=== PATIENT | male | born 1930 | race Two or more races ===

== ENCOUNTER 2018-01-28 00:39 | Inpatient (IN) | payer MEDICARE, MEDICAID ==
[2018-01-28] VITALS (62 sets, daily range): BP systolic 54–139; BP diastolic 30–75
[~2018-01-28] VITALS: Ht 177.8 cm; Wt 90.9 kg
[2018-01-28 02:17] LABS: BILIRUBIN, URINE NEGATIVE (NEGATIVE); GLUCOSE, URINE (UA) NEGATIVE (NEGATIVE); KETONES,URINE NEGATIVE (NEGATIVE); LEUKOCYTE ESTERASE ,URINE 3+ (NEGATIVE); NITRITE,URINE NEGATIVE (NEGATIVE); PH,URINE 7 (4.5-8.0); PROTEIN,URINE 3+ (NEGATIVE); UROBILINOGEN,URINE NORMAL MG/DL (0.0-1.0)
[2018-01-28 02:25] LABS: HEMATOCRIT 19.4 % (42.0-52.0); HEMOGLOBIN 7.1 G/DL (14.2-18.0); MEAN CORPUSCULAR VOLUME 93 FL (80-99); PLATELET COUNT 65 K/UL (150-450); RED BLOOD COUNT 2.08 M/UL (4.70-6.10); WHITE BLOOD COUNT 3.1 K/UL (4.8-10.8)
[2018-01-28 02:36] LABS: ALANINE AMINOTRANSFERASE 19 U/L (12-78); ALBUMIN 1.3 G/DL (3.4-5.0); ALBUMIN/GLOBULIN RATIO 0.3 (1.0-2.7); ALKALINE PHOSPHATASE 114 U/L (46-116); ANION GAP 5 mmol/L (5-15); ASPARTATE AMINO TRANSFERASE 23 U/L (15-37); BILIRUBIN,TOTAL 0.4 MG/DL (0.2-1.0); BLOOD UREA NITROGEN 53 mg/dL (7-18); CALCIUM 9.1 MG/DL (8.5-10.1); CARBON DIOXIDE 30 MMOL/L (21-32); CHLORIDE 84 MMOL/L (98-107); CKMB 11.5 NG/ML (0.0-3.6); CREATINE KINASE 41 U/L (26-308); CREATININE 1.6 MG/DL (0.55-1.30); POTASSIUM 5.3 MMOL/L (3.5-5.1); SODIUM 120 MMOL/L (136-145)
[2018-01-28 02:37] LABS: APPEARANCE,URINE CLOUDY; COLOR,URINE YELLOW
[2018-01-28] MEDS ORDERED: Piperacillin/Tazobactam 3.375 GM in NS 110 ML IVPB ONE (03:00)
[2018-01-28] MEDS ORDERED: Azithromycin 500 MG in D5W 275 ML IVPB ONE (04:15)
[2018-01-28] MEDS ORDERED: ACETAMINOPHEN325 M1 ORAL (04:17)
[2018-01-28] MEDS ORDERED: SYNTHROID100 MCG GT (04:17)
[2018-01-28] MEDS ORDERED: MULTI-DELYN237 ML GT (04:17)
[2018-01-28] MEDS ORDERED: ATORVASTATIN CA10 MG GT (04:17)
[2018-01-28] MEDS ORDERED: ASPIRIN81 MG GT (04:17)
[2018-01-28] MEDS ORDERED: AMIODARONE HCL200 MG GT (04:17)
[2018-01-28] MEDS ORDERED: FUROSEMIDE20 M1 GT (04:17)
[2018-01-28] MEDS ORDERED: DEPAKENE250 MG/5 M GT (04:17)
[2018-01-28] MEDS ORDERED: FERROUS SU300 MG/52 GT (04:17)
[2018-01-28] MEDS ORDERED: ROPINIROLE HCL0.5 MG GT (04:17)
[2018-01-28] MEDS ORDERED: ARICEPT10 MG GT (04:17)
[2018-01-28] MEDS ORDERED: MILK OF MA400 MG/51 GT (04:17)
[2018-01-28] MEDS ORDERED: DULCOLAX10 MG RC (04:17)
[2018-01-28] MEDS ORDERED: UTI-STAT L3875 MG/31 GT (04:17)
[2018-01-28] MEDS ORDERED: ZOFRAN4 M3 GT (04:17)
[2018-01-28] MEDS ORDERED: KEPPRA LIQ100 MG/1 M GT (04:17)
[2018-01-28] MEDS ORDERED: ACETAMINOPHEN325 M1 GT (04:17)
[2018-01-28] MEDS ORDERED: ZINC SULFATE220 M1 GT (04:17)
[2018-01-28] MEDS ORDERED: VITAMIN C500 M1 GT (04:17)
[2018-01-28] MEDS ORDERED: TRAMADOL HCL50 MG GT (04:17)
[2018-01-28] MEDS ORDERED: COLACE100 MG GT (04:17)
[2018-01-28] MEDS ORDERED: MELATONIN 3 MG1 EAC1 GT (04:17)
[2018-01-28] MEDS ORDERED: LACTULOSE20 GM/301 GT (04:17)
[2018-01-28] MEDS ORDERED: KLONOPIN1 MG GT (04:17)
--- NOTE | 2018-01-28 05:11 | Emergency Room Report ---
History of Present Illness General Chief Complaint: Altered Level of Consciousness Source: Medical Record, EMS Present Illness HPI 87-year-old male presents ED for evaluation. Patient brought in from shelter for altered mental status 1 day. Patient has dementia at baseline but nursing staff states patient appears more altered than usual. Hypotensive as per triage. Patient has trach, G-tube. Patient is unable to find any additional history at this time. No other aggravating relieving factors. Denies any other associated symptoms Allergies: Uncoded Allergies: VITAMIN B12 (Allergy, Unknown, 01/28/18) Patient History Past Medical History: seizures Past Surgical History: pacemaker, other - trach/gtube Pertinent Family History: none Social History: Denies: smoking, alcohol use, drug use Immunizations: UTD Reviewed Nursing Documentation: PMH: Agreed; PSxH: Agreed Nursing Documentation-PMH Hx Hypertension: Yes - ANEMIA,HYPOTHYROIDISM Hx Pacemaker: Yes Hx Diabetes: Yes Hx Gastrointestinal Problems: Yes - GASTROSTOMY History Of Psychiatric Problem: Yes - ANXIETY,SCHIZO Hx Cerebrovascular Accident: Yes Hx Seizures: Yes Review of Systems All Other Systems: limited Physical Exam Vital Signs Date Time Temp Pulse Resp B/P (MAP) Pulse Ox O2 Delivery O2 Flow Rate FiO2 01/28/18 00:41 60 17 77/45 100 Mechanical Ventilator 100 01/28/18 01:00 90.0 90.0 Sp02 EP Interpretation: reviewed, normal General Appearance: lethargic Head: normocephalic Eyes: bilateral eye normal inspection, bilateral eye PERRL ENT: normal ENT inspection Neck: tracheotomy Respiratory: decreased breath sounds, crackles Cardiovascular #1: no edema, other - paced Gastrointestinal: other - Gtube site C/D/I Rectal: deferred Genitourinary: no CVA tenderness Musculoskeletal: normal inspection Neurologic: other - dementia Psychiatric: other - dementia Skin: normal inspection Lymphatic: normal inspection Procedures Critical Care Time Critical Care Time i. I feel this is a highly complex case requiring extensive working including EKG/Rhythm strip, Xray/CT/US, Blood/urine lab work, repeat exams while in ED, and administration of strong opiates/narcotics for pain control, admission to hospital or close patient follow up. Total time: 30 min bedside evaluation and treatment excludes procedures (EKG). Reason for critical care: Altered, hypotensive Possible complications: hypotension, hypertension, MA, shock, arrhythmias, metabolic acidosis, end organ damage, respiratory failure. Interventions: Central line, labs, IV fluids, EKG, chest x-ray, pressors, blood transfusion, antibiotics Course: Patient presenting altered 1 day. Hypotensive. Poor IV access. Central line placed. BUN/Cr creatinine elevated, potassium elevated, lactate greater than 4, UA positive for UTI, chest x-ray shows significant pneumonia bilaterally, possible cavitation. Given broad-spectrum antibiotics. Blood pressure slowly improving after IV hydration, pressors.. PRBCs ordered Consultations: nursing staff, EMS, family Performed by: Dr Bullock Tolerated well condition = critical j. because of unstable vital signs this patient had a condition that could potentially threaten life or limb. I feel this is a critical patient who required my full attention while patient was considered critical. Total Critical Care Time excluding procedures was greater than 35 minutes Central Line Central Line : Consent: Emergent Central Line Lumen: triple Central Line Postion: femoral (R) Complications: none Central Line Post Position: sutured, good blood return Attempts: One Patient Tolerated: Well Complications: None Medical Decision Making Diagnostic Impression: Primary Impression: Altered level of consciousness Additional Impressions: Septic shock Renal insufficiency UTI (urinary tract infection) Qualified Codes: N39.0 - Urinary tract infection, site not specified Pneumonia Qualified Codes: J18.9 - Pneumonia, unspecified organism Hyponatremia Anemia Qualified Codes: D64.9 - Anemia, unspecified ER Course Hospital Course 87-year-old male presents ED for altered level of consciousness 1 day, hypotensive Differential diagnoses include: Pneumonia, UTI, sepsis, dehydration, MA/ unstable angina Clinical course Patient placed on stretcher. On playground monitor with hypotension. After initial history and physical, I ordered labs, IV fluids, EKG, chest x-ray, blood cultures, UA. Patient has poor IV access. Left femoral line placed Labs - Na 120, K 5.3, BUN/Cr elevated, noted leukocytosis, troponins negative, UA grossly positive for UTI, lactate > 4, hb/hct low EKG - paced rhythm CXR - bilateral infiltrates, pacemaker, possible cavitation Patient hypotensive, slowly improving with IV fluids, pressors. Given broad spectrum antibiotics. PRBCs ordered Discussed poor prognosis with son over the phone. Gave consent for blood transfusion Case discussed with Dr Mónica Coleman and they agreed to admit patient to their service for further care and support I feel this is a highly complex case requiring extensive working including EKG/ Rhythm strip, Xray/CT/US, Blood/urine lab work, repeat exams while in ED, and administration of strong opiates/narcotics for pain control, admission to hospital or close patient follow up. Diagnosis - ALOC, septic shock, renal insufficiency, UTI, pneumonia, hyponatremia, anemia Patient admitted to ICU in critical condition Labs Test 01/28/18 00:50 01/28/18 01:30 01/28/18 04:00 Urine Color Yellow Urine Appearance Cloudy Urine pH 7 (4.5-8.0) Urine Specific [place] 1.010 (1.005-1.035) Urine Protein 3+ (NEGATIVE) Urine Glucose (UA) Negative (NEGATIVE) Urine Ketones Negative (NEGATIVE) Urine Occult Blood 5+ (NEGATIVE) Urine Nitrite Negative (NEGATIVE) Urine Bilirubin Negative (NEGATIVE) Urine Urobilinogen Normal MG/DL (0.0-1.0) Urine Leukocyte Esterase 3+ (NEGATIVE) Urine RBC Tntc /HPF (0 - 0) Urine WBC Tntc /HPF (0 - 0) Urine Squamous Epithelial Cells None /LPF (NONE/OCC) Urine Calcium Oxalate Crystals Few /LPF (NONE) Urine Bacteria Many /HPF (NONE) Urine Yeast Many /HPF (NONE) White Blood Count 3.1 K/UL (4.8-10.8) Red Blood Count 2.08 M/UL (4.70-6.10) Hemoglobin 7.1 G/DL (14.2-18.0) Hematocrit 19.4 % (42.0-52.0) Mean Corpuscular Volume 93 FL (80-99) Mean Corpuscular Hemoglobin 33.9 PG (27.0-31.0) Mean Corpuscular Hemoglobin Concent 36.3 G/DL (32.0-36.0) Red Cell Distribution Width 17.0 % (11.6-14.8) Platelet Count 65 K/UL (150-450) Mean Platelet Volume 8.8 FL (6.5-10.1) Neutrophils (%) (Auto) % (45.0-75.0) Lymphocytes (%) (Auto) % (20.0-45.0) Monocytes (%) (Auto) % (1.0-10.0) Eosinophils (%) (Auto) % (0.0-3.0) Basophils (%) (Auto) % (0.0-2.0) Prothrombin Time 10.5 SEC (9.30-11.50) Prothromb Time International Ratio 1.0 (0.9-1.1) Activated Partial Thromboplast Time 32 SEC (23-33) Sodium Level 120 MMOL/L (136-145) Potassium Level 5.3 MMOL/L (3.5-5.1) Chloride Level 84 MMOL/L (98-107) Carbon Dioxide Level 30 MMOL/L (21-32) Anion Gap 5 mmol/L (5-15) Blood Urea Nitrogen 53 mg/dL (7-18) Creatinine 1.6 MG/DL (0.55-1.30) Estimat Glomerular Filtration Rate mL/min (>60) Glucose Level 97 MG/DL (74-106) Lactic Acid Level 4.40 mmol/L (0.66-2.22) 3.00 mmol/L (0.66-2.22) Calcium Level 9.1 MG/DL (8.5-10.1) Total Bilirubin 0.4 MG/DL (0.2-1.0) Aspartate Amino Transf (AST/SGOT) 23 U/L (15-37) Alanine Aminotransferase (ALT/SGPT) 19 U/L (12-78) Alkaline Phosphatase 114 U/L (46-116) Total Creatine Kinase 41 U/L (26-308) Creatine Kinase MB 11.5 NG/ML (0.0-3.6) Creatine Kinase MB Relative Index 28.0 Troponin I 0.000 ng/mL (0.000-0.056) Pro-B-Type Natriuretic Peptide 7020 pg/mL (0-125) Total Protein 6.2 G/DL (6.4-8.2) Albumin 1.3 G/DL (3.4-5.0) Globulin 4.9 g/dL Albumin/Globulin Ratio 0.3 (1.0-2.7) EKG Diagnostic Results Rate: normal Rhythm: other - paced ST Segments: no acute changes ASA given to the pt in ED: No Rhythm Strip Diag. Results EP Interpretation: yes Rhythm: no PVC's, no ectopy Chest X-Ray Diagnostic Results Chest X-Ray Diagnostic Results : Chest X-Ray Ordered: Yes # of Views/Limited/Complete: 1 View Indication: Shortness of Breath EP Interpretation: Yes Interpretation: no pneumothorax, other - pacemaker. bilateral pneumonia Impression: Other - pneumonia Electronically Signed by: Electronically signed by Trev Bullock MD Last Vital Signs Date Time Temp Pulse Resp B/P (MAP) Pulse Ox O2 Delivery O2 Flow Rate FiO2 01/28/18 04:15 137/56 01/28/18 04:15 90.2 60 16 100 Mechanical Ventilator 80 90.2 Status: improved Disposition: ADMITTED INPATIENT Condition: Critical Referrals: Mónica Coleman MD (PCP) Trev Bullock MD January 28, 2018 05:11
[2018-01-28] MEDS ORDERED: Hydrocortisone 100mg Inj IV ONE (07:45)
[2018-01-28] MEDS ORDERED: levETIRAcetam 500mg/5ml Liquid GT SCH (10:00)
[2018-01-28] MEDS ORDERED: Albuterol/Ipratropium 3ml neb HHN PRN (10:00)
[2018-01-28] MEDS ORDERED: LORazepam Inj 2mg/ml 1ml IV PRN (10:00)
[2018-01-28] MEDS ORDERED: Miralax 17gm pkt ORAL PRN (10:00)
[2018-01-28] MEDS ORDERED: Morphine Sulfate 4mg/ml Inj IVP PRN (10:00)
[2018-01-28] MEDS ORDERED: Pantoprazole Inj IVP SCH (10:30)
--- NOTE | 2018-01-28 11:04 | Consultation ---
History of Present Illness General Date patient seen: January 28, 2018 Chief Complaint: Altered Level of Consciousness Present Illness HPI 87-year-old male with hx of chronic respiratory failure, Trach/vent/peg, long term resident [facility] for evaluation of altered mental status 1 day. Patient has dementia at baseline but nursing staff states patient appears more altered than usual. He was hypotensive on presentation and was started on Levophed drip in ER. Patient is unable to give any history. He was alos hypothermic. His CXR showed bilateral extensive infiltrate. He is admitted to ICU for further treatment. Allergies: Uncoded Allergies: VITAMIN B12 (Allergy, Unknown, 01/28/18) Medication History Scheduled Amiodarone Hcl* (Cordarone*), 200 MG GT DAILY, (Reported) Ascorbic Acid* (Vitamin C*), 500 MG GT DAILY, (Reported) Aspirin* (Aspirin*), 81 MG GT DAILY, (Reported) Atorvastatin Calcium* (Lipitor*), 10 MG GT BEDTIME, (Reported) Clonazepam* (Klonopin*), 2 MG GT EVERY 12 HOURS, (Reported) Cran/Vitc/Mannose/Inulin/Brom (Uti-Stat Liquid), 30 ML GT BID, (Reported) Docusate Sodium* (Colace*), 100 MG GT DAILY, (Reported) Donepezil Hcl* (Aricept*), 10 MG GT BEDTIME, (Reported) Ferrous Sulfate (Ferrous Sulfate), 7.5 ML GT DAILY, (Reported) Furosemide* (Lasix*), 20 MG GT BID, (Reported) Lactulose (Lactulose*), 30 ML GT DAILY, (Reported) Levetiracetam (Keppra), 500 MG GT BID, (Reported) Levothyroxine Sodium* (Synthroid*), 100 MCG GT DAILY, (Reported) Magnesium Hydroxide* (Milk Of Magnesia*), 30 ML GT BEDTIME, (Reported) Melatonin/Pyridoxine HCl (B6) (Melatonin 3 mg Tablet), 1 EACH GT BEDTIME, ( Reported) Multivitamin Liquid* (Multi-Delyn*), 5 ML GT DAILY, (Reported) Ropinirole Hcl* (Ropinirole Hcl*), 0.5 MG GT TID, (Reported) Valproate Sodium (Depakene), 10 ML GT BID, (Reported) Zinc Sulfate (Zinc Sulfate*), 220 MG GT DAILY, (Reported) Scheduled PRN Acetaminophen* (Acetaminophen 325MG Tablet*), 650 MG GT Q4H PRN for FEVER, ( Reported) Acetaminophen* (Acetaminophen 325MG Tablet*), 650 MG ORAL Q4H PRN for MILD PAIN, (Reported) Bisacodyl (Dulcolax), 10 MG RC DAILY PRN for Constipation, (Reported) Ondansetron* (Zofran*), 4 MG GT Q6H PRN for Nausea & Vomiting, (Reported) Tramadol Hcl* (Ultram*), 50 MG GT Q6H PRN for For Pain, (Reported) Patient History Healthcare decision maker Resuscitation status Advanced Directive on File Past Medical/Surgical History Past Medical/Surgical History: (1) Hypothyroidism (2) Arrhythmia (3) Dementia (4) Chronic respiratory failure Review of Systems All Other Systems: negative except mentioned in HPI Physical Exam General Appearance: cachetic Lines, tubes and drains: peripheral, central line - left femoral, trach, gtube Neck: non-tender Respiratory/Chest: rhonchi - left, rhonchi - right Cardiovascular/Chest: normal peripheral pulses, normal rate Abdomen: normal bowel sounds Genitourinary/Rectal: normal genital exam, normal rectal exam Extremities: no edema, no cyanosis Skin Exam: normal pigmentation Last 24 Hour Vital Signs Date Time Temp Pulse Resp B/P (MAP) Pulse Ox O2 Delivery O2 Flow Rate FiO2 01/28/18 10:27 60 18 100 01/28/18 09:40 104/45 01/28/18 08:39 86/43 01/28/18 07:45 91.9 60 23 107/44 85 Mechanical Ventilator 100 91.9 01/28/18 07:40 91.9 60 23 107/44 85 Mechanical Ventilator 100 91.9 01/28/18 07:17 100 01/28/18 07:05 61 20 100 01/28/18 07:00 103/43 01/28/18 06:54 90.7 60 14 102/50 87 Mechanical Ventilator 100 90.7 01/28/18 06:00 95/75 01/28/18 05:54 90.7 60 14 95/75 84 Mechanical Ventilator 100 90.7 01/28/18 05:45 90.7 60 14 90.7 01/28/18 05:38 60 20 100 01/28/18 05:30 90.5 60 14 102/47 84 Mechanical Ventilator 100 90.5 01/28/18 05:30 90.5 60 14 90.5 01/28/18 05:00 100/45 01/28/18 05:00 90.2 60 14 100/45 88 Mechanical Ventilator 100 90.2 01/28/18 04:15 137/56 01/28/18 04:15 90.2 60 16 137/56 92 Mechanical Ventilator 80 90.2 01/28/18 04:00 90.2 60 16 139/66 100 Mechanical Ventilator 80 90.2 01/28/18 04:00 139/66 01/28/18 03:40 90.1 60 16 130/63 100 Mechanical Ventilator 80 90.1 01/28/18 03:40 130/63 01/28/18 03:35 78/55 01/28/18 03:30 68/45 01/28/18 03:25 90.1 60 16 54/34 100 Mechanical Ventilator 80 90.1 01/28/18 03:25 54/34 01/28/18 03:20 90.1 60 16 58/40 100 Mechanical Ventilator 80 90.1 01/28/18 03:20 58/40 01/28/18 03:15 90.1 60 16 63/37 100 Mechanical Ventilator 80 90.1 01/28/18 03:15 63/37 01/28/18 03:10 90.1 60 16 59/30 100 Mechanical Ventilator 80 90.1 01/28/18 03:10 59/30 01/28/18 03:05 55/36 01/28/18 03:05 90.1 60 16 55/36 100 Mechanical Ventilator 80 90.1 01/28/18 03:00 62/39 01/28/18 03:00 90.1 60 14 62/39 100 Mechanical Ventilator 80 90.1 01/28/18 02:58 62 17 100 01/28/18 02:30 90.1 60 14 69/41 100 Mechanical Ventilator 80 90.1 01/28/18 02:13 60 21 Mechanical Ventilator 100 01/28/18 02:00 90.1 60 16 62/36 100 Mechanical Ventilator 80 90.1 01/28/18 01:45 90.0 60 14 64/44 100 Mechanical Ventilator 80 90.0 01/28/18 01:30 90.0 61 16 58/34 100 Mechanical Ventilator 80 90.0 01/28/18 01:15 90.0 62 16 68/48 100 Mechanical Ventilator 80 90.0 01/28/18 01:04 100 01/28/18 01:00 90.0 60 16 69/45 100 Mechanical Ventilator 80 90.0 01/28/18 00:55 60 21 100 01/28/18 00:41 60 17 77/45 100 Mechanical Ventilator 100 Intake and Output 01/27/18 01/28/18 19:00 07:00 Intake Total 3360 ml Output Total 240 ml Balance 3120 ml Intake IV Total 3360 ml Output Urine Total 240 ml Laboratory Tests Test 01/28/18 00:50 01/28/18 01:30 01/28/18 04:00 01/28/18 06:29 Urine Color Yellow Urine Appearance Cloudy Urine pH 7 (4.5-8.0) Urine Specific [place] 1.010 (1.005-1.035) Urine Protein 3+ (NEGATIVE) H Urine Glucose (UA) Negative (NEGATIVE) Urine Ketones Negative (NEGATIVE) Urine Occult Blood 5+ (NEGATIVE) H Urine Nitrite Negative (NEGATIVE) Urine Bilirubin Negative (NEGATIVE) Urine Urobilinogen Normal MG/DL (0.0-1.0) Urine Leukocyte Esterase 3+ (NEGATIVE) H Urine RBC Tntc /HPF (0 - 0) H Urine WBC Tntc /HPF (0 - 0) H Urine Squamous Epithelial Cells None /LPF (NONE/OCC) Urine Calcium Oxalate Crystals Few /LPF (NONE) Urine Bacteria Many /HPF (NONE) H Urine Yeast Many /HPF (NONE) H White Blood Count 3.1 K/UL (4.8-10.8) L Red Blood Count 2.08 M/UL (4.70-6.10) L Hemoglobin 7.1 G/DL (14.2-18.0) L Hematocrit 19.4 % (42.0-52.0) L Mean Corpuscular Volume 93 FL (80-99) Mean Corpuscular Hemoglobin 33.9 PG (27.0-31.0) H Mean Corpuscular Hemoglobin Concent 36.3 G/DL (32.0-36.0) H Red Cell Distribution Width 17.0 % (11.6-14.8) H Platelet Count 65 K/UL (150-450) L Mean Platelet Volume 8.8 FL (6.5-10.1) Neutrophils (%) (Auto) % (45.0-75.0) Lymphocytes (%) (Auto) % (20.0-45.0) Monocytes (%) (Auto) % (1.0-10.0) Eosinophils (%) (Auto) % (0.0-3.0) Basophils (%) (Auto) % (0.0-2.0) Prothrombin Time 10.5 SEC (9.30-11.50) Prothromb Time International Ratio 1.0 (0.9-1.1) Activated Partial Thromboplast Time 32 SEC (23-33) Sodium Level 120 MMOL/L (136-145) L Potassium Level 5.3 MMOL/L (3.5-5.1) H Chloride Level 84 MMOL/L (98-107) L Carbon Dioxide Level 30 MMOL/L (21-32) Anion Gap 5 mmol/L (5-15) Blood Urea Nitrogen 53 mg/dL (7-18) H Creatinine 1.6 MG/DL (0.55-1.30) H Estimat Glomerular Filtration Rate mL/min (>60) Glucose Level 97 MG/DL (74-106) Lactic Acid Level 4.40 mmol/L (0.66-2.22) H 3.00 mmol/L (0.66-2.22) H Uric Acid 5.5 MG/DL (2.6-7.2) Calcium Level 9.1 MG/DL (8.5-10.1) Total Bilirubin 0.4 MG/DL (0.2-1.0) Aspartate Amino Transf (AST/SGOT) 23 U/L (15-37) Alanine Aminotransferase (ALT/SGPT) 19 U/L (12-78) Alkaline Phosphatase 114 U/L (46-116) Total Creatine Kinase 41 U/L (26-308) Creatine Kinase MB 11.5 NG/ML (0.0-3.6) H Creatine Kinase MB Relative Index 28.0 Troponin I 0.000 ng/mL (0.000-0.056) Pro-B-Type Natriuretic Peptide 7020 pg/mL (0-125) H Total Protein 6.2 G/DL (6.4-8.2) L Albumin 1.3 G/DL (3.4-5.0) L Globulin 4.9 g/dL Albumin/Globulin Ratio 0.3 (1.0-2.7) L Arterial Blood pH 7.260 (7.350-7.450) Arterial Blood Partial Pressure CO2 55.4 mmHg (35.0-45.0) *H Arterial Blood Partial Pressure O2 57.5 mmHg (75.0-100.0) L Arterial Blood HCO3 24.4 mmol/L (22.0-26.0) Arterial Blood Oxygen Saturation 83.9 % (92.0-98.0) L Arterial Blood Base Excess -2.9 Luis Test Positive Height (Feet): 5 Height (Inches): 10.00 Weight (Pounds): 165 Medications Current Medications Medications (Trade) Dose Ordered Sig/Jojo Route PRN Reason Start Time Stop Time Status Last Admin Dose Admin Acetaminophen (Tylenol) 650 mg Q4H PRN ORAL fever 01/28/18 10:00 02/27/18 09:59 Albuterol/ Ipratropium (Albuterol/ Ipratropium) 3 ml Q4H PRN HHN Shortness of Breath 01/28/18 10:00 02/02/18 09:59 Amikacin Sulfate / Sodium Chloride 110 ml @ 110 mls/hr Q24H IV 01/28/18 23:45 02/04/18 23:44 UNV Ertapenem 1 gm/ Sodium Chloride 55 ml @ 110 mls/hr Q24H IV 01/28/18 23:45 02/02/18 23:44 UNV Levetiracetam (Keppra) 500 mg ONCE GT 01/28/18 10:00 01/28/18 11:00 01/28/18 10:50 Levetiracetam (Keppra) 500 mg Q12HR GT 01/28/18 21:00 02/27/18 20:59 Levothyroxine Sodium (Synthroid) 100 mcg DAILY GT 01/29/18 09:00 02/28/18 08:59 Levothyroxine Sodium (Synthroid) 100 mcg DAILY GT 01/28/18 11:00 01/28/18 12:00 Lorazepam (Ativan 2mg/ml 1ml) 2 mg Q2H PRN IV For Anxiety 01/28/18 10:00 02/04/18 09:59 Morphine Sulfate (Morphine Sulfate) 4 mg Q4H PRN IVP Severe Pain (Pain Scale 7-10) 01/28/18 10:00 02/04/18 09:59 Norepinephrine Bitartrate 4 mg/ Dextrose 254 ml @ 0 mls/hr Q24H IV 01/28/18 10:30 02/27/18 10:29 Ondansetron HCl (Zofran) 4 mg Q6H PRN IVP Nausea & Vomiting 01/28/18 10:00 02/27/18 09:59 Pantoprazole (Protonix) 40 mg DAILY IVP 01/29/18 09:00 02/28/18 08:59 Pantoprazole (Protonix) 40 mg ONCE IVP 01/28/18 10:30 01/28/18 11:30 01/28/18 10:48 Polyethylene Glycol (Miralax) 17 gm DAILYPRN PRN ORAL Constipation 01/28/18 10:00 02/27/18 09:59 Sodium Chloride 1,000 ml @ 250 mls/hr Q4H IVLG 01/29/18 10:00 02/27/18 09:59 UNV Vancomycin HCl 1 gm/Dextrose 275 ml @ 183.3 mls/ hr Q24H IVPB 01/29/18 11:00 02/03/18 10:59 Vancomycin HCl/ Dextrose 250 ml @ 166.667 mls/hr ONCE IVPB 01/28/18 11:30 01/28/18 12:30 Assessment/Plan Problem List: (1) Acute on chronic respiratory failure ICD Codes: J96.20 - Acute and chronic respiratory failure, unspecified whether with hypoxia or hypercapnia SNOMED: 41249597 (2) Pneumonia ICD Codes: J18.9 - Pneumonia, unspecified organism SNOMED: 145194236, 274986570 Qualifiers: Qualified Codes: J18.9 - Pneumonia, unspecified organism (3) Septic shock ICD Codes: A41.9 - Sepsis, unspecified organism; R65.21 - Severe sepsis with septic shock SNOMED: 17816081 (4) Hyponatremia ICD Codes: E87.1 - Hypo-osmolality and hyponatremia; R65.21 - Severe sepsis with septic shock SNOMED: 06114424 (5) Altered level of consciousness ICD Codes: R40.4 - Transient alteration of awareness SNOMED: 8120549 (6) Hypotension ICD Codes: I95.9 - Hypotension, unspecified SNOMED: 23499080 (7) Anemia ICD Codes: D64.9 - Anemia, unspecified SNOMED: 682018110 Qualifiers: Qualified Codes: D64.9 - Anemia, unspecified Respiratory: monitor respiratory rate, adjust FIO2, CXR Cardiac: continue to monitor HR/BP Renal: F/U I&O, check electrolytes Infectious Disease: check cultures, continue antibiotics Gastrointestinal: hold feedings Endocrine: monitor blood sugar Neurologic: PRN Ativan Affect: PRN ativan Prophylaxis: Protonix, SCDs Disposition: keep in ICU Time Spent (Minutes): 40 Discussed with: nurses, consultants, machine adjuster leader case trim Shelly Marlow MD January 28, 2018 11:04
--- NOTE | 2018-01-28 11:24 | Diagnostic Imaging Report ---
Indication: Altered mental status Technique: XRAY Chest 1v Comparison: None Findings: Patient rotated to the left. Heart is Enlarged. There are atherosclerotic calcifications in the aorta. There are bilateral interstitial and more focal airspace consolidations. There is a small layering left pleural effusion. There is no definite pneumothorax. There is possible fluid tracking along the minor fissure on the right. Osteopenia and degenerative change of the spine. Tracheostomy tube in place. Dual lead pacemaker noted with lead tips projecting over the expected locations of the right atrium and ventricle. IMPRESSION: * Bilateral interstitial opacities and bilateral airspace consolidations possibly representing multifocal pneumonia. Clinical correlation and follow-up exam recommended. * Small left pleural effusion. Some fluid tracking along the right minor fissure. * Tracheostomy tube in place. This corresponds with the preliminary interpretation of the treating ER clinician, as documented in the electronic medical record. Study obtained via the emergency department however patient admitted to the hospital at time of dictation of the final report.
[2018-01-28] MEDS ORDERED: Vancomycin 1250mg/D5W 250ml IVPB SCH (11:30)
[2018-01-28 14:17] LABS: APPEARANCE,URINE TURBID; BILIRUBIN, URINE NEGATIVE (NEGATIVE); GLUCOSE, URINE (UA) NEGATIVE (NEGATIVE); KETONES,URINE NEGATIVE (NEGATIVE); LEUKOCYTE ESTERASE ,URINE 3+ (NEGATIVE); NITRITE,URINE NEGATIVE (NEGATIVE); PH,URINE 7 (4.5-8.0); PROTEIN,URINE 3+ (NEGATIVE); UROBILINOGEN,URINE NORMAL MG/DL (0.0-1.0)
[2018-01-28 14:31] LABS: COLOR,URINE YELLOW
[2018-01-28] MEDS ORDERED: Ertapenem 1 GM in NS 55 ML IV SCH (15:00)
--- NOTE | 2018-01-28 15:00 | Consultation ---
Consult Note Consult Note asked to eval for hyponatremia and renal failure 87-year-old male with hx of chronic respiratory failure, Trach/vent/peg, long-term resident [facility] for evaluation of altered mental status 1 day. Patient has dementia at baseline but nursing staff states patient appears more altered than usual. He was hypotensive on presentation and was started on Levophed drip in ER. Patient is unable to give any history. He was alos hypothermic. His CXR showed bilateral extensive infiltrate. He is admitted to ICU for further treatment. Past Medical History: seizures Past Surgical History: pacemaker, other - trach/gtube Hx Hypertension: Yes - ANEMIA,HYPOTHYROIDISM Hx Pacemaker: Yes Hx Diabetes: Yes Hx Gastrointestinal Problems: Yes - GASTROSTOMY History Of Psychiatric Problem: Yes - ANXIETY,SCHIZO Hx Cerebrovascular Accident: Yes Hx Seizures: Yes examined- data reviewed- discussed with RN . Assessment/Plan acute renal failure- Septic Shock- UTI- Pneumonia Encephalopathy Anemia Respiratory failure acute on Chronic HypoAlbuminemia Sz disorder HypoThyroidism Plan: antibiotics- pressors- hydrocortisone- transfusion monitor renal parameters avoid nephrotoxics MAMTA RACHEL January 28, 2018 15:00
--- NOTE | 2018-01-28 15:08 | Consultation ---
History of Present Illness General Date patient seen: January 28, 2018 Time patient seen: 14:41 Chief Complaint: Altered Level of Consciousness Present Illness HPI 87 y/o M with hx of chronic resp failure s/p trach/vent, dysphagia s/p PEG, s/p PPM, seizure disorder, hypothyroidism, CVA, anxiety, dementia, group home resident presents to ED with 1 day of AMS. In the ED found to be hypotensive and started on levophed dripn and hypothermic; admitted to the ICU. CXR showed bilateral extensive infiltrate. Maxed on Levop at 30 and SBP 80s. hypothermic Tmin 90.1, now improved to 93.2 pancytopenic. Allergies: Coded Allergies: CYANOCOBALAMIN (Verified Allergy, Unknown, 01/28/18) Medication History Scheduled Amiodarone Hcl* (Cordarone*), 200 MG GT DAILY, (Reported) Ascorbic Acid* (Vitamin C*), 500 MG GT DAILY, (Reported) Aspirin* (Aspirin*), 81 MG GT DAILY, (Reported) Atorvastatin Calcium* (Lipitor*), 10 MG GT BEDTIME, (Reported) Clonazepam* (Klonopin*), 2 MG GT EVERY 12 HOURS, (Reported) Cran/Vitc/Mannose/Inulin/Brom (Uti-Stat Liquid), 30 ML GT BID, (Reported) Docusate Sodium* (Colace*), 100 MG GT DAILY, (Reported) Donepezil Hcl* (Aricept*), 10 MG GT BEDTIME, (Reported) Ferrous Sulfate (Ferrous Sulfate), 7.5 ML GT DAILY, (Reported) Furosemide* (Lasix*), 20 MG GT BID, (Reported) Lactulose (Lactulose*), 30 ML GT DAILY, (Reported) Levetiracetam (Keppra), 500 MG GT BID, (Reported) Levothyroxine Sodium* (Synthroid*), 100 MCG GT DAILY, (Reported) Magnesium Hydroxide* (Milk Of Magnesia*), 30 ML GT BEDTIME, (Reported) Melatonin/Pyridoxine HCl (B6) (Melatonin 3 mg Tablet), 1 EACH GT BEDTIME, ( Reported) Multivitamin Liquid* (Multi-Delyn*), 5 ML GT DAILY, (Reported) Ropinirole Hcl* (Ropinirole Hcl*), 0.5 MG GT TID, (Reported) Valproate Sodium (Depakene), 10 ML GT BID, (Reported) Zinc Sulfate (Zinc Sulfate*), 220 MG GT DAILY, (Reported) Scheduled PRN Acetaminophen* (Acetaminophen 325MG Tablet*), 650 MG GT Q4H PRN for FEVER, ( Reported) Acetaminophen* (Acetaminophen 325MG Tablet*), 650 MG ORAL Q4H PRN for MILD PAIN, (Reported) Bisacodyl (Dulcolax), 10 MG RC DAILY PRN for Constipation, (Reported) Ondansetron* (Zofran*), 4 MG GT Q6H PRN for Nausea & Vomiting, (Reported) Tramadol Hcl* (Ultram*), 50 MG GT Q6H PRN for For Pain, (Reported) Patient History Healthcare decision maker Resuscitation status Advanced Directive on File Patient History Narrative PMhx: as above Shx: Denies: smoking, alcohol use, drug use Fhx: non contributory. Review of Systems ROS Narrative unable to obtain Physical Exam Physical Exam Narrative General Appearance: cachetic Lines, tubes and drains: peripheral, central line - left femoral, trach, gtube Neck: non-tender Respiratory/Chest: rhonchi - left, rhonchi - right Cardiovascular/Chest: normal peripheral pulses, normal rate Abdomen: normal bowel sounds Genitourinary/Rectal: normal genital exam, normal rectal exam Extremities: no edema, no cyanosis Skin Exam: normal pigmentation Last 24 Hour Vital Signs Date Time Temp Pulse Resp B/P (MAP) Pulse Ox O2 Delivery O2 Flow Rate FiO2 01/28/18 13:30 60 89/39 86 Mechanical Ventilator 100 01/28/18 13:25 89/39 01/28/18 13:00 60 92/46 84 Mechanical Ventilator 100 01/28/18 12:31 60 20 100 01/28/18 12:30 60 19 96/44 81 Mechanical Ventilator 100 01/28/18 12:00 60 01/28/18 12:00 93.2 60 21 113/53 88 Mechanical Ventilator 100 93.2 01/28/18 11:30 60 20 94/49 86 Mechanical Ventilator 100 01/28/18 11:00 60 21 88/46 82 Mechanical Ventilator 100 01/28/18 10:54 100 01/28/18 10:53 100 01/28/18 10:27 60 18 100 01/28/18 10:00 60 28 104/51 84 Mechanical Ventilator 100 01/28/18 09:40 104/45 01/28/18 09:29 60 17 100 01/28/18 09:00 60 37 104/45 81 Mechanical Ventilator 100 01/28/18 08:39 86/43 01/28/18 08:08 91.9 60 19 86/43 Mechanical Ventilator 100 91.9 01/28/18 08:00 60 01/28/18 07:45 91.9 60 23 107/44 85 Mechanical Ventilator 100 91.9 01/28/18 07:40 91.9 60 23 107/44 85 Mechanical Ventilator 100 91.9 01/28/18 07:17 100 01/28/18 07:05 61 20 100 01/28/18 07:00 103/43 01/28/18 06:54 90.7 60 14 102/50 87 Mechanical Ventilator 100 90.7 01/28/18 06:00 95/75 01/28/18 05:54 90.7 60 14 95/75 84 Mechanical Ventilator 100 90.7 01/28/18 05:45 90.7 60 14 90.7 01/28/18 05:38 60 20 100 01/28/18 05:30 90.5 60 14 102/47 84 Mechanical Ventilator 100 90.5 01/28/18 05:30 90.5 60 14 90.5 01/28/18 05:00 100/45 01/28/18 05:00 90.2 60 14 100/45 88 Mechanical Ventilator 100 90.2 01/28/18 04:15 137/56 01/28/18 04:15 90.2 60 16 137/56 92 Mechanical Ventilator 80 90.2 01/28/18 04:00 90.2 60 16 139/66 100 Mechanical Ventilator 80 90.2 01/28/18 04:00 139/66 01/28/18 03:40 90.1 60 16 130/63 100 Mechanical Ventilator 80 90.1 01/28/18 03:40 130/63 01/28/18 03:35 78/55 01/28/18 03:30 68/45 01/28/18 03:25 90.1 60 16 54/34 100 Mechanical Ventilator 80 90.1 01/28/18 03:25 54/34 01/28/18 03:20 90.1 60 16 58/40 100 Mechanical Ventilator 80 90.1 01/28/18 03:20 58/40 01/28/18 03:15 90.1 60 16 63/37 100 Mechanical Ventilator 80 90.1 01/28/18 03:15 63/37 01/28/18 03:10 90.1 60 16 59/30 100 Mechanical Ventilator 80 90.1 01/28/18 03:10 59/30 01/28/18 03:05 55/36 01/28/18 03:05 90.1 60 16 55/36 100 Mechanical Ventilator 80 90.1 01/28/18 03:00 62/39 01/28/18 03:00 90.1 60 14 62/39 100 Mechanical Ventilator 80 90.1 01/28/18 02:58 62 17 100 01/28/18 02:30 90.1 60 14 69/41 100 Mechanical Ventilator 80 90.1 01/28/18 02:13 60 21 Mechanical Ventilator 100 01/28/18 02:00 90.1 60 16 62/36 100 Mechanical Ventilator 80 90.1 01/28/18 01:45 90.0 60 14 64/44 100 Mechanical Ventilator 80 90.0 01/28/18 01:30 90.0 61 16 58/34 100 Mechanical Ventilator 80 90.0 01/28/18 01:15 90.0 62 16 68/48 100 Mechanical Ventilator 80 90.0 01/28/18 01:04 100 01/28/18 01:00 90.0 60 16 69/45 100 Mechanical Ventilator 80 90.0 01/28/18 00:55 60 21 100 01/28/18 00:41 60 17 77/45 100 Mechanical Ventilator 100 Intake and Output 01/27/18 01/28/18 19:00 07:00 Intake Total 3360 ml Output Total 240 ml Balance 3120 ml IV Total 3360 ml Output Urine Total 240 ml Laboratory Tests Test 01/28/18 00:50 01/28/18 01:30 01/28/18 04:00 01/28/18 06:29 Urine Color Yellow Urine Appearance Cloudy Urine pH 7 (4.5-8.0) Urine Specific [place] 1.010 (1.005-1.035) Urine Protein 3+ (NEGATIVE) H Urine Glucose (UA) Negative (NEGATIVE) Urine Ketones Negative (NEGATIVE) Urine Occult Blood 5+ (NEGATIVE) H Urine Nitrite Negative (NEGATIVE) Urine Bilirubin Negative (NEGATIVE) Urine Urobilinogen Normal MG/DL (0.0-1.0) Urine Leukocyte Esterase 3+ (NEGATIVE) H Urine RBC Tntc /HPF (0 - 0) H Urine WBC Tntc /HPF (0 - 0) H Urine Squamous Epithelial Cells None /LPF (NONE/OCC) Urine Calcium Oxalate Crystals Few /LPF (NONE) Urine Bacteria Many /HPF (NONE) H Urine Yeast Many /HPF (NONE) H White Blood Count 3.1 K/UL (4.8-10.8) L Red Blood Count 2.08 M/UL (4.70-6.10) L Hemoglobin 7.1 G/DL (14.2-18.0) L Hematocrit 19.4 % (42.0-52.0) L Mean Corpuscular Volume 93 FL (80-99) Mean Corpuscular Hemoglobin 33.9 PG (27.0-31.0) H Mean Corpuscular Hemoglobin Concent 36.3 G/DL (32.0-36.0) H Red Cell Distribution Width 17.0 % (11.6-14.8) H Platelet Count 65 K/UL (150-450) L Mean Platelet Volume 8.8 FL (6.5-10.1) Neutrophils (%) (Auto) % (45.0-75.0) Lymphocytes (%) (Auto) % (20.0-45.0) Monocytes (%) (Auto) % (1.0-10.0) Eosinophils (%) (Auto) % (0.0-3.0) Basophils (%) (Auto) % (0.0-2.0) Prothrombin Time 10.5 SEC (9.30-11.50) Prothromb Time International Ratio 1.0 (0.9-1.1) Activated Partial Thromboplast Time 32 SEC (23-33) Sodium Level 120 MMOL/L (136-145) L Potassium Level 5.3 MMOL/L (3.5-5.1) H Chloride Level 84 MMOL/L (98-107) L Carbon Dioxide Level 30 MMOL/L (21-32) Anion Gap 5 mmol/L (5-15) Blood Urea Nitrogen 53 mg/dL (7-18) H Creatinine 1.6 MG/DL (0.55-1.30) H Estimat Glomerular Filtration Rate mL/min (>60) Glucose Level 97 MG/DL (74-106) Lactic Acid Level 4.40 mmol/L (0.66-2.22) H 3.00 mmol/L (0.66-2.22) H Uric Acid 5.5 MG/DL (2.6-7.2) Calcium Level 9.1 MG/DL (8.5-10.1) Total Bilirubin 0.4 MG/DL (0.2-1.0) Aspartate Amino Transf (AST/SGOT) 23 U/L (15-37) Alanine Aminotransferase (ALT/SGPT) 19 U/L (12-78) Alkaline Phosphatase 114 U/L (46-116) Total Creatine Kinase 41 U/L (26-308) Creatine Kinase MB 11.5 NG/ML (0.0-3.6) H Creatine Kinase MB Relative Index 28.0 Troponin I 0.000 ng/mL (0.000-0.056) Pro-B-Type Natriuretic Peptide 7020 pg/mL (0-125) H Total Protein 6.2 G/DL (6.4-8.2) L Albumin 1.3 G/DL (3.4-5.0) L Globulin 4.9 g/dL Albumin/Globulin Ratio 0.3 (1.0-2.7) L Arterial Blood pH 7.260 (7.350-7.450) Arterial Blood Partial Pressure CO2 55.4 mmHg (35.0-45.0) *H Arterial Blood Partial Pressure O2 57.5 mmHg (75.0-100.0) L Arterial Blood HCO3 24.4 mmol/L (22.0-26.0) Arterial Blood Oxygen Saturation 83.9 % (92.0-98.0) L Arterial Blood Base Excess -2.9 Luis Test Positive Test 01/28/18 12:53 Urine Color Yellow Urine Appearance Turbid Urine pH 7 (4.5-8.0) Urine Specific [place] 1.005 (1.005-1.035) Urine Protein 3+ (NEGATIVE) H Urine Glucose (UA) Negative (NEGATIVE) Urine Ketones Negative (NEGATIVE) Urine Occult Blood 5+ (NEGATIVE) H Urine Nitrite Negative (NEGATIVE) Urine Bilirubin Negative (NEGATIVE) Urine Urobilinogen Normal MG/DL (0.0-1.0) Urine Leukocyte Esterase 3+ (NEGATIVE) H Urine RBC 40-60 /HPF (0 - 0) H Urine WBC 60-80 /HPF (0 - 0) H Urine Squamous Epithelial Cells Few /LPF (NONE/OCC) Urine Bacteria Many /HPF (NONE) H Urine Eosinophils Pending Urine Random Sodium 35 mmol/L (20-110) Urine Potassium Timed 39 mmol/L (12-62) Height (Feet): 5 Height (Inches): 10.00 Weight (Pounds): 165 Medications Current Medications Medications (Trade) Dose Ordered Sig/Jojo Route PRN Reason Start Time Stop Time Status Last Admin Dose Admin Acetaminophen (Tylenol) 650 mg Q4H PRN ORAL fever 01/28/18 10:00 02/27/18 09:59 Albuterol/ Ipratropium (Albuterol/ Ipratropium) 3 ml Q4H PRN HHN Shortness of Breath 01/28/18 10:00 02/02/18 09:59 Amikacin Sulfate 750 mg/Sodium Chloride 113 ml @ 113 mls/hr Q36H IV 01/28/18 17:00 02/04/18 16:59 Ertapenem 1 gm/ Sodium Chloride 55 ml @ 110 mls/hr Q24H IV 01/28/18 15:00 01/28/18 16:00 Levetiracetam (Keppra) 500 mg Q12HR GT 01/28/18 21:00 02/27/18 20:59 Levothyroxine Sodium (Synthroid) 100 mcg DAILY GT 01/29/18 09:00 02/28/18 08:59 Lorazepam (Ativan 2mg/ml 1ml) 2 mg Q2H PRN IV For Anxiety 01/28/18 10:00 02/04/18 09:59 Morphine Sulfate (Morphine Sulfate) 4 mg Q4H PRN IVP Severe Pain (Pain Scale 7-10) 01/28/18 10:00 02/04/18 09:59 Norepinephrine Bitartrate 4 mg/ Dextrose 254 ml @ 0 mls/hr Q24H IV 01/28/18 10:30 02/27/18 10:29 01/28/18 13:25 Ondansetron HCl (Zofran) 4 mg Q6H PRN IVP Nausea & Vomiting 01/28/18 10:00 02/27/18 09:59 Pantoprazole (Protonix) 40 mg DAILY IVP 01/29/18 09:00 02/28/18 08:59 Polyethylene Glycol (Miralax) 17 gm DAILYPRN PRN ORAL Constipation 01/28/18 10:00 02/27/18 09:59 Sodium Chloride 1,000 ml @ 250 mls/hr Q4H IVLG 01/29/18 12:00 02/27/18 11:59 01/28/18 12:04 Vancomycin HCl 1 gm/Dextrose 275 ml @ 183.3 mls/ hr Q24H IVPB 01/29/18 11:00 02/03/18 10:59 Assessment/Plan Assessment/Plan Abx: IV Vanco 01/28- IV Amikacin 01/28- Ertapenem 01/28- azithromycin x1 01/25 Zosyn x1 01/28 Assessment: Septic shock- 2ry to UTI and PNA- r/o MDRO, r/o Flu, r/o Legionella -u/a WBC tntc, nit -, leuk +3; ucx p -CXR: Bilateral interstitial opacities and bilateral airspace consolidations possibly representing multifocal pneumonia. Small left pleural effusion. Some fluid tracking along the right minor fissure. Tracheostomy tube in place. -BCx p -sp cx Hypothermia/leukopenia KEVIN Acute on chronic respiratory failure lactic acidosis hyponatremia chronic resp failure s/p trach/vent dysphagia s/p PEG s/p PPM seizure disorder hypothyroidism CVA anxiety dementia group home resident Plan: -Continue empiric IV Vancomycin and Amikacin #1 and switch Ertapenem #1 to Meropenem pending cultures -PO Levaquin 750mg q 48hrs empiric for legionella and other atypical coverage -Empiric Tamiflu pending influenza test -f/u cx -Monitor CBC/BMP, temperatures -Influenza sc, Cocci Ab, CrAg, Legionella ag urine -ICU care/support -Trach/peg care -aspiration precautions Thank you for this consultation. Will continue to follow along with you. Discussed with Marilia Glass M.D. January 28, 2018 15:08
[2018-01-28] MEDS ORDERED: Hydrocortisone 100mg Inj IV SCH (15:20)
[2018-01-28] MEDS: D5NS 1,000 ML IV SCH (15:48)
[2018-01-28] MEDS: Meropenem 1 GM in NS 55 ML IVPB SCH (15:58)
--- NOTE | 2018-01-28 16:08 | Cardiology Report ---
APPROVED REPORT EXAM: Two-dimensional and M-mode echocardiogram with Doppler and color Doppler. INDICATION Left ventricular function M-Mode DIMENSIONS IVSd1.2 (0.7-1.1cm)Left Atrium (MM)4.0 (1.6-4.0cm) LVDd4.8 (3.5-5.6cm)Aortic Root2.9 (2.0-3.7cm) PWd1.2 (0.7-1.1cm)Aortic Cusp Exc.1.6 (1.5-2.0cm) LVDs2.4 (2.5-4.0cm) PWs1.8 cm Technically difficult study due to poor acoustical windows. Normal left ventricular chamber size, systolic function and wall motion. Left ventricular ejection fraction estimated to be 60-65%. No evidence of left ventricular hypertrophy. No evidence of pericardial or pleural effusion. Mild bi-atrial enlargement by 2D. Focal aortic valve sclerosis with adequate cusp excursion. Thickened mitral valve leaflets with normal excursion. Mild mitral annulus and aortic root calcification. Pulmonic valve not well visualized. Normal tricuspid valve structure. IVC is not obtainable. Probable pacemaker wire present in the right side chambers. A color flow and spectral Doppler study was performed and revealed: No aortic regurgitation. Trace mitral regurgitation. Normal mitral diastolic function. Moderate tricuspid systolic velocities suggests peak right ventricular systolic pressure of 25 mmHg
[2018-01-28] MEDS: Phenylephrine 50 MG in D5W 245 ML IV SCH ×2 (16:51→23:02)
[2018-01-28] MEDS ORDERED: Amikacin 750 MG in NS 110 ML IV SCH (17:00)
[2018-01-28 17:53] LABS: HEMATOCRIT 30.4 % (42.0-52.0); HEMOGLOBIN 10.1 G/DL (14.2-18.0); MEAN CORPUSCULAR VOLUME 94 FL (80-99); PLATELET COUNT 69 K/UL (150-450); RED BLOOD COUNT 3.23 M/UL (4.70-6.10); RED CELL DISTRIBUTION WIDTH 15.6 % (11.6-14.8); WHITE BLOOD COUNT 17.6 K/UL (4.8-10.8)
[2018-01-28] MEDS: Midodrine 10mg tab GT SCH (17:54)
[2018-01-28 18:14] LABS: ANION GAP 15 mmol/L (5-15); BLOOD UREA NITROGEN 53 mg/dL (7-18); CALCIUM 8.2 MG/DL (8.5-10.1); CARBON DIOXIDE 19 MMOL/L (21-32); CHLORIDE 89 MMOL/L (98-107); CREATININE 1.8 MG/DL (0.55-1.30); POTASSIUM 5.9 MMOL/L (3.5-5.1); SODIUM 123 MMOL/L (136-145)
[2018-01-28] MEDS: levETIRAcetam 500mg/5ml Liquid GT SCH (20:50)
[2018-01-28] MEDS ORDERED: Heparin 5000 units/ml inj SUBQ SCH (21:00)
[2018-01-28] MEDS: Hydrocortisone 100mg Inj IV SCH (22:00)
[2018-01-29] VITALS (65 sets, daily range): BP systolic 69–107; BP diastolic 19–83
[2018-01-29] MEDS: Phenylephrine 50 MG in D5W 245 ML IV SCH ×6 (03:23→23:09)
[2018-01-29] MEDS: D5NS 1,000 ML IV SCH (03:25)
--- NOTE | 2018-01-29 04:30 | History and Physical Report ---
DATE OF ADMISSION: 01/28/2018 NOTE: POOR AUDIO REASON FOR ADMISSION: This is first admission to [facility] of this 87-year-old patient because of septic shock. HISTORY OF PRESENT ILLNESS: The patient is a resident of an extended care facility subacute unit where he has been in stable condition over the last several months. He is known to have several chronic medical syndrome, but has been stable on his current medication. One day prior to present admission, he developed hypotension, tachycardia and fever, following which he had an episode of hypotension. Player Manager came and the patient was resuscitated in the facility. He was transferred to [facility] emergency room where he was found to be hypotensive and febrile with leukocytosis. He was given volume 4 liters and then was placed on pressor support. He was type and crossed and transfused 2 units packed RBC and transferred to the intensive care unit. PAST MEDICAL HISTORY: Last year, the patient had cerebral hemorrhage following which he had respiratory failure. He had to be intubated and placed on mechanical ventilation. He was unable to be weaned, underwent tracheostomy and gastrostomy and referred to subacute unit. In addition, the patient is known to have congestive heart failure. This was compensated and was stage II . In addition, he has cardiac arrhythmia for which he was on amiodarone 200 mg daily. FAMILY HISTORY: Noncontributory. SOCIAL HISTORY: He is born in [place] and lived in for many years prior to the appearance of total disability. He retired more than 20 years ago. HABITS: The patient did not smoke, drink, or use illicit drugs. REVIEW OF SYSTEMS: The patient is unable to give any information regarding his state of health. PHYSICAL EXAMINATION: VITAL SIGNS: Blood pressure now is 87/53, pulse is 60, respirations 21, and temperature 95.5 degrees. HEENT: Eyes were normal. Pupils are round, equal, and reactive to light. Sclerae were white. Conjunctivae were pale. Extraocular movement could not be assessed. Temporal arteries were palpable bilaterally. There was no bilateral temporal wasting. Visual roldan to confrontation. Neglect sign could not be assessed. ENT, mucous membranes were not dehydrated. Auditory canals were clear and tympanic membranes could not be visualized. Nasal cavity was not congested. Nasal septum was intact. Soft palate could not be visualized. Tongue was midline and dry, but normally papillated. NECK: Supple. There was no goiter. No mass. No lymphadenopathy. There was no JVD. No bruits. Carotid upstroke was 1+. Tracheostomy site was clean. LUNGS: Clear in upper lobe with bilateral rhonchi at the bases only. HEART: PMI could not be located. There was normal S1 and normal S2. There was no murmur. No arrhythmia. No S3. No S4. No pericardial rub. ABDOMEN: Soft and nontender without organomegaly. There were no masses palpable. Normal bowel sounds without bruits. There was no guarding. No rebound tenderness. No ascites. No CVA tenderness. Liver span was 8 cm, mostly nontender. Gastrostomy site was clean. The patient was covered with a warm blanket because of his hypothermia. EXTREMITIES: No cyanosis, no clubbing, and no edema. Extremities were warm. NEUROLOGICAL: Reflexes in biceps, triceps, and brachioradialis were present. Patellar retinacula was difficult to obtain. Plantars were in extension bilaterally. Cranial nerves II through XII were symmetric and equal. Cerebellar function, there was no tremor. No nystagmus. No extrapyramidal rigidity. Sensory exam to pinprick, cotton touch, position and motor strength could not be assessed because of the patient's . LABORATORY AND DIAGNOSTIC DATA: Hemoglobin is 7.9, hematocrit 19.4 with MCV of 93, WBC of 3.1, and platelets of 65. His BUN and creatinine is 53 and 1.6 respectively. Sodium is 130, potassium 5.3, chloride 84, and CO2 is 20. His calcium is 9.1. His lactic acid is 4.4, but now it is 3. SGOT, SGPT, and alkaline phosphatase are normal. His serum troponin was negative. His proBNP is 7020. His albumin is 1.3. IMPRESSION: The patient had multiple acute medical problems, one is septic shock with elevated lactic acidosis. He is hypothermic, hypotensive, on Depakote, he is septic, he has hyponatremia and moderate hypokalemia. PLAN: The patient was type and crossed and was transfused 2 units packed RBCs. Currently, on Levophed 80 mcg/minute and normal saline at mL/ hour. The medications he is currently on is 500 mg IV piggyback q.12 h., amikacin 50 mg/kg in 24 hours, and vancomycin 1 gram one time. Multiple consults were called to assist in the management of this case, Infectious Disease consult, Pulmonary consult, and Cardiology consult. Mónica Coleman M.D. DR: TIMOTHY JOB#: [id number] CC:
[2018-01-29] MEDS: Meropenem 1 GM in NS 55 ML IVPB SCH ×2 (04:31→15:31)
[2018-01-29] MEDS: Hydrocortisone 100mg Inj IV SCH ×3 (05:39→21:16)
[2018-01-29 07:02] LABS: HEMATOCRIT 28.9 % (42.0-52.0); HEMOGLOBIN 9.1 G/DL (14.2-18.0); MEAN CORPUSCULAR VOLUME 97 FL (80-99); PLATELET COUNT 48 K/UL (150-450); RED BLOOD COUNT 2.98 M/UL (4.70-6.10); RED CELL DISTRIBUTION WIDTH 16.3 % (11.6-14.8)
[2018-01-29 07:06] LABS: WHITE BLOOD COUNT 37.3 K/UL (4.8-10.8)
[2018-01-29 07:12] LABS: CREATINE KINASE 107 U/L (26-308); GAMMA GLUTAMYL TRANSPEPTIDASE 20 U/L (5-85); PHOSPHORUS 7.6 MG/DL (2.5-4.9)
[2018-01-29 07:37] LABS: % IRON SATURATION 60 % (15-50); IRON 93 ug/dL (50-175); TOTAL IRON BINDING CAPACITY 154 ug/dL (250-450)
[2018-01-29 07:43] LABS: INR 1.3 (0.9-1.1)
[2018-01-29 07:47] LABS: ALANINE AMINOTRANSFERASE 46 U/L (12-78); ALBUMIN 1.4 G/DL (3.4-5.0); ALBUMIN/GLOBULIN RATIO 0.3 (1.0-2.7); ALKALINE PHOSPHATASE 154 U/L (46-116); ANION GAP 23 mmol/L (5-15); ASPARTATE AMINO TRANSFERASE 122 U/L (15-37); BILIRUBIN,DIRECT 0.7 MG/DL (0.0-0.3); BLOOD UREA NITROGEN 53 mg/dL (7-18); CALCIUM 7.8 MG/DL (8.5-10.1); CARBON DIOXIDE 11 MMOL/L (21-32); CHLORIDE 88 MMOL/L (98-107); SODIUM 122 MMOL/L (136-145)
[2018-01-29 07:53] LABS: CHOLESTEROL < 50 MG/DL (< 200); HDL CHOLESTEROL 30 MG/DL (40-60); LACTATE DEHYDROGENASE 316 U/L (81-234); TRIGLYCERIDES 18 MG/DL (30-150)
[2018-01-29] MEDS ORDERED: Sodium Bicarbonate 50ml Carp IV SCH (09:00)
[2018-01-29] MEDS ORDERED: Pantoprazole Inj IVP SCH (09:00)
[2018-01-29] MEDS ORDERED: Levofloxacin 500mg tab ORAL ONE (09:00)
[2018-01-29] MEDS: Midodrine 10mg tab GT SCH ×3 (09:12→18:31)
[2018-01-29] MEDS: levETIRAcetam 500mg/5ml Liquid GT SCH ×2 (09:12→20:34)
[2018-01-29] MEDS ORDERED: Tubing IV Blood Pump IV ONE ×2 (09:33→09:34)
[2018-01-29] MEDS ORDERED: D5NS 1000ml IV ONE (09:34)
[2018-01-29] MEDS ORDERED: NS 500ML ONE (09:34)
[2018-01-29] MEDS ORDERED: Sterile Water Irrig 1000ml IRRIG ONE (09:34)
[2018-01-29] MEDS ORDERED: Tubing IV Secondary IV ONE (09:34)
[2018-01-29] MEDS: Sodium Bicarbonate 100 ML in D5W 1000ml 1,000 ML IV SCH ×2 (10:18→21:04)
[2018-01-29] MEDS ORDERED: Vancomycin 1 GM in D5W 275 ML IVPB SCH (11:00)
--- NOTE | 2018-01-29 11:40 | Pulmonolgy Critical Care Note ---
Critical Care - Asmt/Plan Problems: (1) Acute on chronic respiratory failure (2) Septic shock (3) Pneumonia (4) Altered level of consciousness (5) Renal insufficiency (6) Anemia (7) Dementia Respiratory: monitor respiratory rate, adjust FIO2, CXR, weaning trial Cardiac: continue pressors, continue to monitor HR/BP Renal: F/U I&O, keep IV fluid Infectious Disease: check cultures, continue antibiotics Gastrointestinal: continue feedings/current rate Endocrine: monitor blood sugar, continue sliding scale insulin Hematologic: monitor H/H, transfuse if hgb<8.5 Neurologic: PRN Ativan, keep patient comfortable Affect: PRN ativan Prophylaxis: Protonix Notes Reviewed: cardio, renal Discussed with: nurses, consultants, case manager specialistpaper sales manager - Objective Last 24 Hour Vital Signs Date Time Temp Pulse Resp B/P (MAP) Pulse Ox O2 Delivery O2 Flow Rate FiO2 01/29/18 11:06 85/48 01/29/18 11:00 85/48 01/29/18 10:45 60 26 100 01/29/18 10:00 60 26 83/40 96 Mechanical Ventilator 100 01/29/18 10:00 83/40 01/29/18 09:30 60 26 87/39 96 Mechanical Ventilator 100 01/29/18 09:00 60 27 89/45 98 Mechanical Ventilator 100 01/29/18 09:00 89/45 01/29/18 08:48 60 27 100 01/29/18 08:45 60 26 85/36 88 Mechanical Ventilator 100 01/29/18 08:30 60 25 82/45 89 Mechanical Ventilator 100 01/29/18 08:15 60 25 79/40 89 Mechanical Ventilator 100 01/29/18 08:00 100 01/29/18 08:00 96.5 60 25 82/45 91 Mechanical Ventilator 100 96.5 01/29/18 08:00 60 01/29/18 08:00 90/49 01/29/18 07:43 60 88/46 01/29/18 07:30 60 24 90/49 91 Mechanical Ventilator 100 01/29/18 07:00 60 28 89/42 89 Mechanical Ventilator 100 01/29/18 07:00 89/42 01/29/18 06:55 60 26 100 01/29/18 06:45 60 27 88/42 87 Mechanical Ventilator 100 01/29/18 06:30 60 24 82/52 98 Mechanical Ventilator 100 01/29/18 06:15 60 26 107/72 Mechanical Ventilator 100 01/29/18 06:00 60 28 84/37 88 Mechanical Ventilator 100 01/29/18 06:00 84/37 01/29/18 06:00 82/46 01/29/18 05:45 60 28 82/46 93 Mechanical Ventilator 100 01/29/18 05:30 60 27 83/46 94 Mechanical Ventilator 100 01/29/18 05:15 60 26 81/38 94 Mechanical Ventilator 100 01/29/18 05:00 60 26 100 01/29/18 05:00 60 26 84/38 94 Mechanical Ventilator 100 01/29/18 05:00 84/38 01/29/18 04:45 60 26 84/39 96 Mechanical Ventilator 100 01/29/18 04:30 60 27 85/38 78 Mechanical Ventilator 100 01/29/18 04:26 60 27 81/40 90 Mechanical Ventilator 100 01/29/18 04:15 60 26 82/34 90 Mechanical Ventilator 100 01/29/18 04:00 60 01/29/18 04:00 97.5 61 28 85/38 91 Mechanical Ventilator 100 97.5 01/29/18 04:00 100 01/29/18 04:00 93/36 01/29/18 03:45 60 28 93/36 92 Mechanical Ventilator 100 01/29/18 03:30 60 28 87/34 91 Mechanical Ventilator 100 01/29/18 03:29 60 29 100 01/29/18 03:23 60 76/40 01/29/18 03:15 60 29 76/40 90 Mechanical Ventilator 100 01/29/18 03:00 87/40 01/29/18 03:00 60 29 87/40 91 Mechanical Ventilator 100 01/29/18 02:45 60 28 94/49 91 Mechanical Ventilator 100 01/29/18 02:30 60 29 75/20 91 Mechanical Ventilator 100 01/29/18 02:15 60 28 96/47 90 Mechanical Ventilator 100 01/29/18 02:00 60 29 91/53 90 Mechanical Ventilator 100 01/29/18 02:00 91/53 01/29/18 01:45 60 27 85/44 91 Mechanical Ventilator 100 01/29/18 01:31 82/35 01/29/18 01:30 60 30 82/35 91 Mechanical Ventilator 100 01/29/18 01:15 60 30 81/40 88 Mechanical Ventilator 100 01/29/18 01:00 78/39 01/29/18 01:00 60 31 78/39 89 Mechanical Ventilator 100 01/29/18 00:49 60 30 100 01/29/18 00:45 60 31 80/45 92 Mechanical Ventilator 100 01/29/18 00:30 60 31 79/42 89 Mechanical Ventilator 100 01/29/18 00:15 60 31 84/39 89 Mechanical Ventilator 100 01/29/18 00:00 100 01/29/18 00:00 97.0 60 30 83/42 89 Mechanical Ventilator 100 97.0 01/29/18 00:00 60 01/29/18 00:00 83/42 01/28/18 23:45 60 31 81/44 87 Mechanical Ventilator 100 01/28/18 23:30 60 33 73/44 86 Mechanical Ventilator 100 01/28/18 23:15 60 32 80/48 85 Mechanical Ventilator 100 01/28/18 23:12 60 33 100 01/28/18 23:02 60 81/46 01/28/18 23:02 81/46 01/28/18 23:00 60 31 81/46 85 Mechanical Ventilator 100 01/28/18 22:45 60 30 70/36 74 Mechanical Ventilator 100 01/28/18 22:30 60 30 66/39 77 Mechanical Ventilator 100 01/28/18 22:15 60 32 76/44 52 Mechanical Ventilator 100 01/28/18 22:00 60 30 83/38 85 Mechanical Ventilator 100 01/28/18 22:00 83/38 01/28/18 21:45 60 29 70/38 87 Mechanical Ventilator 100 01/28/18 21:30 60 29 77/41 89 Mechanical Ventilator 100 01/28/18 21:20 60 30 100 01/28/18 21:15 60 31 90/37 90 Mechanical Ventilator 100 01/28/18 21:00 88/43 01/28/18 21:00 60 22 88/43 94 Mechanical Ventilator 100 01/28/18 20:58 70/41 01/28/18 20:45 60 31 70/41 93 Mechanical Ventilator 100 01/28/18 20:30 60 19 80/41 89 Mechanical Ventilator 100 01/28/18 20:15 60 30 84/43 90 Mechanical Ventilator 100 5/9/18 20:00 60 9 84/43 89 Mechanical Ventilator 100 01/28/18 20:00 74/59 01/28/18 20:00 100 01/28/18 20:00 60 01/28/18 19:45 60 32 82/42 89 Mechanical Ventilator 100 01/28/18 19:30 98.0 60 32 82/42 89 Mechanical Ventilator 100 98.0 01/28/18 19:15 60 32 81/48 91 01/28/18 19:15 60 32 81/48 91 Mechanical Ventilator 100 01/28/18 19:00 82/42 01/28/18 19:00 60 31 88/41 92 Mechanical Ventilator 100 01/28/18 18:53 60 31 100 01/28/18 18:30 60 27 75/42 87 Mechanical Ventilator 100 01/28/18 18:00 60 28 85/38 94 Mechanical Ventilator 100 01/28/18 18:00 85/38 01/28/18 17:45 60 10 91/54 85 01/28/18 17:30 60 26 97/52 92 Mechanical Ventilator 100 01/28/18 17:15 60 97/53 95 01/28/18 17:07 60 95/55 88 01/28/18 17:07 60 31 100 01/28/18 17:05 60 27 95/55 93 Mechanical Ventilator 100 01/28/18 17:00 60 93/50 88 01/28/18 17:00 93/50 01/28/18 16:51 60 87/53 01/28/18 16:07 83/50 01/28/18 16:00 60 01/28/18 16:00 95.5 60 25 83/50 85 Mechanical Ventilator 100 95.5 01/28/18 16:00 100 01/28/18 15:30 60 20 91/48 81 Mechanical Ventilator 100 01/28/18 15:25 91/48 01/28/18 15:02 60 27 100 01/28/18 15:00 60 22 82/45 87 Mechanical Ventilator 100 01/28/18 14:30 60 20 84/45 84 Mechanical Ventilator 100 01/28/18 14:00 60 22 87/41 87 Mechanical Ventilator 100 01/28/18 13:30 60 21 89/39 86 Mechanical Ventilator 100 01/28/18 13:25 89/39 01/28/18 13:00 60 22 92/46 84 Mechanical Ventilator 100 01/28/18 12:40 99/53 01/28/18 12:31 60 20 100 01/28/18 12:30 60 19 96/44 81 Mechanical Ventilator 100 01/28/18 12:00 60 01/28/18 12:00 93.2 60 21 113/53 88 Mechanical Ventilator 100 93.2 01/28/18 11:40 94/49 Status: awake, sedated Condition: grave HEENT: atraumatic Lungs: clear Heart: HR/BP stable Abdomen: soft, non-tender, feeding tube Extremities: no C/C/E, edema Decubiti: location Micro: Microbiology Date/Time Source Procedure Growth Status 01/28/18 01:45 Blood Blood Culture - Preliminary NO GROWTH AFTER 24 HOURS Resulted 01/28/18 01:30 Blood Blood Culture - Preliminary NO GROWTH AFTER 24 HOURS Resulted 01/28/18 12:53 Wound Gram Stain Pending Resulted 01/28/18 12:53 Wound Culture - Preliminary Gram Negative Bacillus 1 Resulted 01/29/18 06:30 Nasopharynx Influenza Types A,B Antigen (MOHIT) - Final Complete 01/28/18 00:50 Nasal Nares MRSA Culture - Preliminary Resulted 01/28/18 00:50 Urine,Clean Catch Urine Culture - Preliminary Gram Negative Bacillus 1 Resulted Accucheck: 75 Critical Care - Subjective ROS Limited/Unobtainable: No ICU Day: 2 Intubation Day: 2 Condition: critical EKG Rhythm: Sinus Rhythm FI02: 100 Vent Support Breath Rate: 16 Vent Support Mode: AC Vent Tidal Volume: 700 Sputum Amount: Scant PEEP: 10.0 PIP: 62 I&O: Intake and Output 01/28/18 01/29/18 19:00 07:00 Intake Total 1511.750 ml 2710.00 ml Output Total 110 ml 0 ml Balance 1401.750 ml 2710.00 ml Intake Free Water 90 ml IV Total 1421.750 ml 2690.00 ml Other 20 ml Output Urine Total 110 ml 0 ml # Bowel Movements 3 CXR: extensive infiltrate Labs: Laboratory Tests Test 01/28/18 12:53 01/28/18 17:30 01/28/18 17:45 01/29/18 05:30 Urine Color Yellow Urine Appearance Turbid Urine pH 7 (4.5-8.0) Urine Specific [place] 1.005 (1.005-1.035) Urine Protein 3+ (NEGATIVE) H Urine Glucose (UA) Negative (NEGATIVE) Urine Ketones Negative (NEGATIVE) Urine Occult Blood 5+ (NEGATIVE) H Urine Nitrite Negative (NEGATIVE) Urine Bilirubin Negative (NEGATIVE) Urine Urobilinogen Normal MG/DL (0.0-1.0) Urine Leukocyte Esterase 3+ (NEGATIVE) H Urine RBC 40-60 /HPF (0 - 0) H Urine WBC 60-80 /HPF (0 - 0) H Urine Squamous Epithelial Cells Few /LPF (NONE/OCC) Urine Bacteria Many /HPF (NONE) H Urine Eosinophils None seen Urine Random Sodium 35 mmol/L (20-110) Urine Potassium Timed 39 mmol/L (12-62) Lactic Acid Level 10.40 mmol/L (0.66-2.22) H 14.60 mmol/L (0.66-2.22) H White Blood Count 17.6 K/UL (4.8-10.8) #H 37.3 K/UL (4.8-10.8) #*H Red Blood Count 3.23 M/UL (4.70-6.10) L 2.98 M/UL (4.70-6.10) L Hemoglobin 10.1 G/DL (14.2-18.0) #L 9.1 G/DL (14.2-18.0) L Hematocrit 30.4 % (42.0-52.0) #L 28.9 % (42.0-52.0) L Mean Corpuscular Volume 94 FL (80-99) 97 FL (80-99) Mean Corpuscular Hemoglobin 31.2 PG (27.0-31.0) H 30.6 PG (27.0-31.0) Mean Corpuscular Hemoglobin Concent 33.0 G/DL (32.0-36.0) 31.4 G/DL (32.0-36.0) L Red Cell Distribution Width 15.6 % (11.6-14.8) H 16.3 % (11.6-14.8) H Platelet Count 69 K/UL (150-450) L 48 K/UL (150-450) L Mean Platelet Volume 9.3 FL (6.5-10.1) 12.9 FL (6.5-10.1) H Neutrophils (%) (Auto) % (45.0-75.0) % (45.0-75.0) Lymphocytes (%) (Auto) % (20.0-45.0) % (20.0-45.0) Monocytes (%) (Auto) % (1.0-10.0) % (1.0-10.0) Eosinophils (%) (Auto) % (0.0-3.0) % (0.0-3.0) Basophils (%) (Auto) % (0.0-2.0) % (0.0-2.0) Differential Total Cells Counted 100 100 Neutrophils % (Manual) 27 % (45-75) L 27 % (45-75) L Lymphocytes % (Manual) 12 % (20-45) L 7 % (20-45) L Monocytes % (Manual) 15 % (1-10) H 12 % (1-10) H Eosinophils % (Manual) 0 % (0-3) 0 % (0-3) Basophils % (Manual) 0 % (0-2) 0 % (0-2) Metamyelocytes % 12 % (0-0) H 15 % (0-0) H Band Neutrophils 34 % (0-8) H 36 % (0-8) H Nucleated Red Blood Cells 12 /100 WBC 9 /100 WBC Toxic Granulation 1+ Platelet Estimate Adequate Decreased L Platelet Morphology Giant Platelets 1+ 1+ Polychromasia 1+ Sodium Level 123 MMOL/L (136-145) L 122 MMOL/L (136-145) L Potassium Level 5.9 MMOL/L (3.5-5.1) H 6.0 MMOL/L (3.5-5.1) *H Chloride Level 89 MMOL/L (98-107) L 88 MMOL/L (98-107) L Carbon Dioxide Level 19 MMOL/L (21-32) L 11 MMOL/L (21-32) L Anion Gap 15 mmol/L (5-15) 23 mmol/L (5-15) H Blood Urea Nitrogen 53 mg/dL (7-18) H 53 mg/dL (7-18) H Creatinine 1.8 MG/DL (0.55-1.30) H 2.0 MG/DL (0.55-1.30) H Estimat Glomerular Filtration Rate mL/min (>60) mL/min (>60) Glucose Level 118 MG/DL (74-106) H 86 MG/DL (74-106) Calcium Level 8.2 MG/DL (8.5-10.1) L 7.8 MG/DL (8.5-10.1) L C-Reactive Protein, Quantitative > 70.0 mg/dL (0.00-0.90) H Myelocytes % 3 % (0-0) H Hypochromasia 1+ Anisocytosis 1+ Macrocytosis 1+ Erythrocyte Sedimentation Rate 90 MM/HR (0-20) H Reticulocyte Count 1.7 % (0.0-2.0) Prothrombin Time 12.7 SEC (9.30-11.50) H Prothromb Time International Ratio 1.3 (0.9-1.1) H Activated Partial Thromboplast Time 62 SEC (23-33) H Hemoglobin A1c 5.3 % (4.3-6.0) Osmolality 281 mOsm/kg (297-317) L Uric Acid 6.6 MG/DL (2.6-7.2) Phosphorus Level 7.6 MG/DL (2.5-4.9) H Magnesium Level 2.2 MG/DL (1.8-2.4) Iron Level 93 ug/dL (50-175) Total Iron Binding Capacity 154 ug/dL (250-450) L Percent Iron Saturation 60 % (15-50) H Unsaturated Iron Binding 61 ug/dL (112-346) L Total Bilirubin 1.0 MG/DL (0.2-1.0) Direct Bilirubin 0.7 MG/DL (0.0-0.3) H Gamma Glutamyl Transpeptidase 20 U/L (5-85) Aspartate Amino Transf (AST/SGOT) 122 U/L (15-37) H Alanine Aminotransferase (ALT/SGPT) 46 U/L (12-78) Alkaline Phosphatase 154 U/L (46-116) H Lactate Dehydrogenase 316 U/L (81-234) H Total Creatine Kinase 107 U/L (26-308) Troponin I 0.010 ng/mL (0.000-0.056) Pro-B-Type Natriuretic Peptide > 75767 pg/mL (0-125) H Total Protein 5.5 G/DL (6.4-8.2) L Albumin 1.4 G/DL (3.4-5.0) L Globulin 4.1 g/dL Albumin/Globulin Ratio 0.3 (1.0-2.7) L Triglycerides Level 18 MG/DL (30-150) L Cholesterol Level < 50 MG/DL (< 200) LDL Cholesterol 21 mg/dL (<100) HDL Cholesterol 30 MG/DL (40-60) L Cholesterol/HDL Ratio 1.7 (3.3-4.4) L Carcinoembryonic Antigen Pending Vitamin B12 Level > 2000 PG/ML (193-986) H Folate 17.4 NG/ML (8.6-58.9) Thyroid Stimulating Hormone (TSH) 6.790 uiU/mL (0.358-3.740) Random Amikacin Level Pending Coccidioides Antibody (Comp Fix) Pending Test 01/29/18 08:19 01/29/18 10:00 Arterial Blood pH 6.973 (7.350-7.450) Arterial Blood Partial Pressure CO2 34.6 mmHg (35.0-45.0) L Arterial Blood Partial Pressure O2 71.2 mmHg (75.0-100.0) L Arterial Blood HCO3 7.8 mmol/L (22.0-26.0) L Arterial Blood Oxygen Saturation 87.6 % (92.0-98.0) L Arterial Blood Base Excess -22.7 Luis Test Positive Lactic Acid Level 14.80 mmol/L (0.66-2.22) H Shelly Marlow MD January 29, 2018 11:40
--- NOTE | 2018-01-29 11:48 | Diagnostic Imaging Report ---
Indication: Dyspnea Comparison: 01/28/2018 A single view chest radiograph was obtained. Findings: Extensive patchy infiltrates demonstrated bilaterally relatively unchanged. Tracheostomy and left-sided pacemaker noted. Heart is enlarged but stable. A left pleural effusion could be present. IMPRESSION: No significant change
--- NOTE | 2018-01-29 14:45 | Nephrology Progress Note ---
Assessment/Plan Problem List: (1) Septic shock (2) Acute on chronic respiratory failure (3) Hypothyroidism (4) Renal insufficiency Assessment acute renal failure- Septic Shock- UTI- Pneumonia on max pressors Encephalopathy Anemia Respiratory failure acute on Chronic HypoAlbuminemia Sz disorder HypoThyroidism Plan Plan: antibiotics- pressors- hydrocortisone- transfusion monitor renal parameters avoid nephrotoxics poor prognosis Subjective ROS Limited/Unobtainable: Yes Objective Objective Last 24 Hour Vital Signs Date Time Temp Pulse Resp B/P (MAP) Pulse Ox O2 Delivery O2 Flow Rate FiO2 01/29/18 14:00 60 26 81/43 97 Mechanical Ventilator 100 01/29/18 14:00 81/43 01/29/18 13:30 60 26 90/40 90 Mechanical Ventilator 100 01/29/18 13:08 60 26 100 01/29/18 13:00 60 26 84/19 90 Mechanical Ventilator 100 01/29/18 13:00 94/44 01/29/18 12:30 60 26 94/44 90 Mechanical Ventilator 100 01/29/18 12:00 97.5 60 26 84/48 88 Mechanical Ventilator 100 97.5 01/29/18 12:00 60 01/29/18 12:00 100 01/29/18 12:00 90/44 01/29/18 11:42 60 86/43 01/29/18 11:30 60 26 87/42 90 Mechanical Ventilator 100 01/29/18 11:06 85/48 01/29/18 11:00 60 25 84/45 95 Mechanical Ventilator 100 01/29/18 11:00 85/48 01/29/18 10:45 60 26 100 01/29/18 10:30 60 27 75/47 96 Mechanical Ventilator 100 01/29/18 10:00 60 26 83/40 96 Mechanical Ventilator 100 01/29/18 10:00 83/40 01/29/18 09:30 60 26 87/39 96 Mechanical Ventilator 100 01/29/18 09:00 60 27 89/45 98 Mechanical Ventilator 100 01/29/18 09:00 89/45 01/29/18 08:48 60 27 100 01/29/18 08:45 60 26 85/36 88 Mechanical Ventilator 100 01/29/18 08:30 60 25 82/45 89 Mechanical Ventilator 100 01/29/18 08:15 60 25 79/40 89 Mechanical Ventilator 100 01/29/18 08:00 100 01/29/18 08:00 96.5 60 25 82/45 91 Mechanical Ventilator 100 96.5 01/29/18 08:00 60 01/29/18 08:00 90/49 01/29/18 07:43 60 88/46 01/29/18 07:30 60 24 90/49 91 Mechanical Ventilator 100 01/29/18 07:00 60 28 89/42 89 Mechanical Ventilator 100 01/29/18 07:00 89/42 01/29/18 06:55 60 26 100 01/29/18 06:45 60 27 88/42 87 Mechanical Ventilator 100 01/29/18 06:30 60 24 82/52 98 Mechanical Ventilator 100 01/29/18 06:15 60 26 107/72 Mechanical Ventilator 100 01/29/18 06:00 60 28 84/37 88 Mechanical Ventilator 100 01/29/18 06:00 84/37 01/29/18 06:00 82/46 01/29/18 05:45 60 28 82/46 93 Mechanical Ventilator 100 01/29/18 05:30 60 27 83/46 94 Mechanical Ventilator 100 01/29/18 05:15 60 26 81/38 94 Mechanical Ventilator 100 01/29/18 05:00 60 26 100 01/29/18 05:00 60 26 84/38 94 Mechanical Ventilator 100 01/29/18 05:00 84/38 01/29/18 04:45 60 26 84/39 96 Mechanical Ventilator 100 01/29/18 04:30 60 27 85/38 78 Mechanical Ventilator 100 01/29/18 04:26 60 27 81/40 90 Mechanical Ventilator 100 01/29/18 04:15 60 26 82/34 90 Mechanical Ventilator 100 01/29/18 04:00 60 01/29/18 04:00 97.5 61 28 85/38 91 Mechanical Ventilator 100 97.5 01/29/18 04:00 100 01/29/18 04:00 93/36 01/29/18 03:45 60 28 93/36 92 Mechanical Ventilator 100 01/29/18 03:30 60 28 87/34 91 Mechanical Ventilator 100 01/29/18 03:29 60 29 100 01/29/18 03:23 60 76/40 01/29/18 03:15 60 29 76/40 90 Mechanical Ventilator 100 01/29/18 03:00 87/40 01/29/18 03:00 60 29 87/40 91 Mechanical Ventilator 100 01/29/18 02:45 60 28 94/49 91 Mechanical Ventilator 100 01/29/18 02:30 60 29 75/20 91 Mechanical Ventilator 100 01/29/18 02:15 60 28 96/47 90 Mechanical Ventilator 100 01/29/18 02:00 60 29 91/53 90 Mechanical Ventilator 100 01/29/18 02:00 91/53 01/29/18 01:45 60 27 85/44 91 Mechanical Ventilator 100 01/29/18 01:31 82/35 01/29/18 01:30 60 30 82/35 91 Mechanical Ventilator 100 01/29/18 01:15 60 30 81/40 88 Mechanical Ventilator 100 01/29/18 01:00 78/39 01/29/18 01:00 60 31 78/39 89 Mechanical Ventilator 100 01/29/18 00:49 60 30 100 01/29/18 00:45 60 31 80/45 92 Mechanical Ventilator 100 01/29/18 00:30 60 31 79/42 89 Mechanical Ventilator 100 01/29/18 00:15 60 31 84/39 89 Mechanical Ventilator 100 01/29/18 00:00 100 01/29/18 00:00 97.0 60 30 83/42 89 Mechanical Ventilator 100 97.0 01/29/18 00:00 60 01/29/18 00:00 83/42 01/28/18 23:45 60 31 81/44 87 Mechanical Ventilator 100 01/28/18 23:30 60 33 73/44 86 Mechanical Ventilator 100 01/28/18 23:15 60 32 80/48 85 Mechanical Ventilator 100 01/28/18 23:12 60 33 100 01/28/18 23:02 60 81/46 01/28/18 23:02 81/46 01/28/18 23:00 60 31 81/46 85 Mechanical Ventilator 100 01/28/18 22:45 60 30 70/36 74 Mechanical Ventilator 100 01/28/18 22:30 60 30 66/39 77 Mechanical Ventilator 100 01/28/18 22:15 60 32 76/44 52 Mechanical Ventilator 100 01/28/18 22:00 60 30 83/38 85 Mechanical Ventilator 100 01/28/18 22:00 83/38 01/28/18 21:45 60 29 70/38 87 Mechanical Ventilator 100 01/28/18 21:30 60 29 77/41 89 Mechanical Ventilator 100 01/28/18 21:20 60 30 100 01/28/18 21:15 60 31 90/37 90 Mechanical Ventilator 100 01/28/18 21:00 88/43 01/28/18 21:00 60 22 88/43 94 Mechanical Ventilator 100 01/28/18 20:58 70/41 01/28/18 20:45 60 31 70/41 93 Mechanical Ventilator 100 01/28/18 20:30 60 19 80/41 89 Mechanical Ventilator 100 01/28/18 20:15 60 30 84/43 90 Mechanical Ventilator 100 01/28/18 20:00 60 9 84/43 89 Mechanical Ventilator 100 01/28/18 20:00 74/59 01/28/18 20:00 100 01/28/18 20:00 60 01/28/18 19:45 60 32 82/42 89 Mechanical Ventilator 100 01/28/18 19:30 98.0 60 32 82/42 89 Mechanical Ventilator 100 98.0 01/28/18 19:15 60 32 81/48 91 01/28/18 19:15 60 32 81/48 91 Mechanical Ventilator 100 01/28/18 19:00 82/42 01/28/18 19:00 60 31 88/41 92 Mechanical Ventilator 100 01/28/18 18:53 60 31 100 01/28/18 18:30 60 27 75/42 87 Mechanical Ventilator 100 01/28/18 18:00 60 28 85/38 94 Mechanical Ventilator 100 01/28/18 18:00 85/38 01/28/18 17:45 60 10 91/54 85 01/28/18 17:30 60 26 97/52 92 Mechanical Ventilator 100 01/28/18 17:15 60 97/53 95 01/28/18 17:07 60 95/55 88 01/28/18 17:07 60 31 100 01/28/18 17:05 60 27 95/55 93 Mechanical Ventilator 100 01/28/18 17:00 60 93/50 88 01/28/18 17:00 93/50 01/28/18 16:51 60 87/53 01/28/18 16:07 83/50 01/28/18 16:00 60 01/28/18 16:00 95.5 60 25 83/50 85 Mechanical Ventilator 100 95.5 01/28/18 16:00 100 5/9/18 15:30 60 20 91/48 81 Mechanical Ventilator 100 01/28/18 15:25 91/48 01/28/18 15:02 60 27 100 01/28/18 15:00 60 22 82/45 87 Mechanical Ventilator 100 Intake and Output 01/28/18 01/29/18 19:00 07:00 Intake Total 1511.750 ml 2710.00 ml Output Total 110 ml 0 ml Balance 1401.750 ml 2710.00 ml Intake Free Water 90 ml IV Total 1421.750 ml 2690.00 ml Other 20 ml Output Urine Total 110 ml 0 ml # Bowel Movements 3 Laboratory Tests 01/28/18 17:30: Lactic Acid Level 10.40H 01/28/18 17:45: White Blood Count 17.6#H, Red Blood Count 3.23L, Hemoglobin 10.1#L, Hematocrit 30.4#L, Mean Corpuscular Volume 94, Mean Corpuscular Hemoglobin 31.2H, Mean Corpuscular Hemoglobin Concent 33.0, Red Cell Distribution Width 15.6H, Platelet Count 69L, Mean Platelet Volume 9.3, Neutrophils (%) (Auto) , Lymphocytes (%) (Auto) , Monocytes (%) (Auto) , Eosinophils (%) (Auto) , Basophils (%) (Auto) , Differential Total Cells Counted 100, Neutrophils % ( Manual) 27L, Lymphocytes % (Manual) 12L, Monocytes % (Manual) 15H, Eosinophils % (Manual) 0, Basophils % (Manual) 0, Metamyelocytes % 12H, Band Neutrophils 34H , Nucleated Red Blood Cells 12, Toxic Granulation 1+, Platelet Estimate Adequate , Platelet Morphology , Giant Platelets 1+, Polychromasia 1+, Sodium Level 123L , Potassium Level 5.9H, Chloride Level 89L, Carbon Dioxide Level 19L, Anion Gap 15, Blood Urea Nitrogen 53H, Creatinine 1.8H, Estimat Glomerular Filtration Rate , Glucose Level 118H, Calcium Level 8.2L, C-Reactive Protein, Quantitative > 70.0H 01/29/18 05:30: Lactic Acid Level 14.60H, White Blood Count 37.3#*H, Red Blood Count 2.98L, Hemoglobin 9.1L, Hematocrit 28.9L, Mean Corpuscular Volume 97, Mean Corpuscular Hemoglobin 30.6, Mean Corpuscular Hemoglobin Concent 31.4L, Red Cell Distribution Width 16.3H, Platelet Count 48L, Mean Platelet Volume 12.9H, Neutrophils (%) (Auto) , Lymphocytes (%) (Auto) , Monocytes (%) (Auto) , Eosinophils (%) (Auto) , Basophils (%) (Auto) , Differential Total Cells Counted 100, Neutrophils % (Manual) 27L, Lymphocytes % (Manual) 7L, Monocytes % (Manual) 12H, Eosinophils % (Manual) 0, Basophils % (Manual) 0, Metamyelocytes % 15H, Band Neutrophils 36H, Nucleated Red Blood Cells 9, Platelet Estimate DecreasedL, Platelet Morphology , Giant Platelets 1+, Sodium Level 122L, Potassium Level 6.0*H, Chloride Level 88L, Carbon Dioxide Level 11L, Anion Gap 23H, Blood Urea Nitrogen 53H, Creatinine 2.0H, Estimat Glomerular Filtration Rate , Glucose Level 86, Calcium Level 7.8L, Myelocytes % 3H, Other Cell Type Pathologist comment, Hypochromasia 1+, Anisocytosis 1+, Macrocytosis 1+, Erythrocyte Sedimentation Rate 90H, Reticulocyte Count 1.7, Prothrombin Time 12.7H, Prothromb Time International Ratio 1.3H, Activated Partial Thromboplast Time 62H, Hemoglobin A1c 5.3, Osmolality 281L, Uric Acid 6.6, Phosphorus Level 7.6H, Magnesium Level 2.2, Iron Level 93, Total Iron Binding Capacity 154L, Percent Iron Saturation 60H, Unsaturated Iron Binding 61L, Total Bilirubin 1.0, Direct Bilirubin 0.7H, Gamma Glutamyl Transpeptidase 20, Aspartate Amino Transf (AST/SGOT) 122H, Alanine Aminotransferase (ALT/SGPT) 46, Alkaline Phosphatase 154H, Lactate Dehydrogenase 316H, Total Creatine Kinase 107, Troponin I 0.010, Pro-B-Type Natriuretic Peptide > 52234D, Total Protein 5.5L, Albumin 1.4L, Globulin 4.1, Albumin/Globulin Ratio 0.3L, Triglycerides Level 18L, Cholesterol Level < 50, LDL Cholesterol 21, HDL Cholesterol 30L, Cholesterol/HDL Ratio 1.7L , Carcinoembryonic Antigen [Pending], Vitamin B12 Level > 2000H, Folate 17.4, Thyroid Stimulating Hormone (TSH) 6.790H, Random Amikacin Level [Pending], Coccidioides Antibody (Comp Fix) [Pending] 01/29/18 08:19: Arterial Blood pH 6.973*L, Arterial Blood Partial Pressure CO2 34.6L, Arterial Blood Partial Pressure O2 71.2L, Arterial Blood HCO3 7.8L, Arterial Blood Oxygen Saturation 87.6L, Arterial Blood Base Excess -22.7, Luis Test Positive 01/29/18 10:00: Lactic Acid Level 14.80H Height (Feet): 5 Height (Inches): 10.00 Weight (Pounds): 200 General Appearance: lethargic Cardiovascular: normal rate, pacemaker/AICD Respiratory/Chest: decreased breath sounds Abdomen: distended MAMTA RACHEL January 29, 2018 14:45
--- NOTE | 2018-01-29 15:03 | Diagnostic Imaging Report ---
Indication:Abdominal pain. Abnormal BUN/creatinine Technique: Grayscale and duplex Doppler imaging of the abdomen performed. Comparison: None Findings: There is a small cyst measuring 1.2 cm within the body of the pancreas, nonspecific. There is a small liver cyst 7 mm in size. Gallstones are present. Sonographic Dias's is negative. Small right pleural effusion noted.Lower pole right renal cyst 4.5 cm demonstrated. CBD is 2.8 mm.There is no ascites. Spleen is normal in size. The area of the urinary bladder is heterogeneous. There is no hydronephrosis. Right kidney is 12 cm in size. The left kidney is 11.5 cm in length. Cortical echogenicity is within normal limits. There is an apparent mass or filling defect that appears fairly stationery within the urinary bladder. Further evaluation of this is recommended. Cazares catheter is present but the balloon is not well visualized. IMPRESSION: 5 x 7 cm filling defect within the urinary bladder. This may be a hematoma or mass. Evaluation with cystoscopy is recommended. No hydronephrosis. Left renal cyst noted. Gallstones. 1.2 cm pancreatic cyst nonspecific. Small right pleural effusion
--- NOTE | 2018-01-29 15:07 | Infectious Diseases Prog Note ---
Assessment/Plan Assessment/Plan Abx: IV Vanco 01/28- IV Amikacin 01/28- Ertapenem 01/28- azithromycin x1 01/25 Zosyn x1 01/28 Assessment: Septic shock, worsening- 2ry to UTI and PNA- r/o MDRO, r/o Legionella, r/o fungal -CXR 01/29: Extensive patchy infiltrates demonstrated bilaterally relatively unchanged. -CXR: Bilateral interstitial opacities and bilateral airspace consolidations possibly representing multifocal pneumonia. Small left pleural effusion. Some fluid tracking along the right minor fissure. Tracheostomy tube in place. 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) chronic resp failure s/p trach/vent dysphagia s/p PEG s/p PPM seizure disorder hypothyroidism CVA anxiety dementia residential resident Plan: -Continue empiric IV Vancomycin, Meropenem and Amikacin #2 pending cultures -Continue PO Levaquin 750mg q 48hrs #2 empiric for legionella and other atypical coverage -d/c Empiric Tamiflu #2 -Add empiric IV Fluconazole 200mg qd for empiric cocci and crypto PNA pending test -f/u cx -Monitor CBC/BMP, temperatures -f/u Cocci Ab, CrAg, Legionella ag urine -ICU care/support -Trach/peg care -aspiration precautions -poor prognosis Thank you for this consultation. Will continue to follow along with you. Discussed with RN Subjective Allergies: Coded Allergies: CYANOCOBALAMIN (Verified Allergy, Unknown, 01/28/18) Subjective hypothermia improved on bear hugger leukocytosis 30s maxed on Levo and Eligio Bcx NTD 100% fio2 Objective Vital Signs Last 24 Hour Vital Signs Date Time Temp Pulse Resp B/P (MAP) Pulse Ox O2 Delivery O2 Flow Rate FiO2 01/29/18 14:00 60 26 81/43 97 Mechanical Ventilator 100 01/29/18 14:00 81/43 01/29/18 13:30 60 26 90/40 90 Mechanical Ventilator 100 01/29/18 13:08 60 26 100 01/29/18 13:00 60 26 84/19 90 Mechanical Ventilator 100 01/29/18 13:00 94/44 01/29/18 12:30 60 26 94/44 90 Mechanical Ventilator 100 01/29/18 12:00 97.5 60 26 84/48 88 Mechanical Ventilator 100 97.5 01/29/18 12:00 60 01/29/18 12:00 100 01/29/18 12:00 90/44 01/29/18 11:42 60 86/43 01/29/18 11:30 60 26 87/42 90 Mechanical Ventilator 100 01/29/18 11:06 85/48 01/29/18 11:00 60 25 84/45 95 Mechanical Ventilator 100 01/29/18 11:00 85/48 01/29/18 10:45 60 26 100 01/29/18 10:30 60 27 75/47 96 Mechanical Ventilator 100 01/29/18 10:00 60 26 83/40 96 Mechanical Ventilator 100 01/29/18 10:00 83/40 01/29/18 09:30 60 26 87/39 96 Mechanical Ventilator 100 01/29/18 09:00 60 27 89/45 98 Mechanical Ventilator 100 01/29/18 09:00 89/45 01/29/18 08:48 60 27 100 01/29/18 08:45 60 26 85/36 88 Mechanical Ventilator 100 01/29/18 08:30 60 25 82/45 89 Mechanical Ventilator 100 01/29/18 08:15 60 25 79/40 89 Mechanical Ventilator 100 01/29/18 08:00 100 01/29/18 08:00 96.5 60 25 82/45 91 Mechanical Ventilator 100 96.5 01/29/18 08:00 60 01/29/18 08:00 90/49 01/29/18 07:43 60 88/46 01/29/18 07:30 60 24 90/49 91 Mechanical Ventilator 100 01/29/18 07:00 60 28 89/42 89 Mechanical Ventilator 100 01/29/18 07:00 89/42 01/29/18 06:55 60 26 100 01/29/18 06:45 60 27 88/42 87 Mechanical Ventilator 100 01/29/18 06:30 60 24 82/52 98 Mechanical Ventilator 100 01/29/18 06:15 60 26 107/72 Mechanical Ventilator 100 01/29/18 06:00 60 28 84/37 88 Mechanical Ventilator 100 01/29/18 06:00 84/37 01/29/18 06:00 82/46 01/29/18 05:45 60 28 82/46 93 Mechanical Ventilator 100 01/29/18 05:30 60 27 83/46 94 Mechanical Ventilator 100 01/29/18 05:15 60 26 81/38 94 Mechanical Ventilator 100 01/29/18 05:00 60 26 100 01/29/18 05:00 60 26 84/38 94 Mechanical Ventilator 100 01/29/18 05:00 84/38 01/29/18 04:45 60 26 84/39 96 Mechanical Ventilator 100 01/29/18 04:30 60 27 85/38 78 Mechanical Ventilator 100 01/29/18 04:26 60 27 81/40 90 Mechanical Ventilator 100 01/29/18 04:15 60 26 82/34 90 Mechanical Ventilator 100 01/29/18 04:00 60 01/29/18 04:00 97.5 61 28 85/38 91 Mechanical Ventilator 100 97.5 01/29/18 04:00 100 01/29/18 04:00 93/36 01/29/18 03:45 60 28 93/36 92 Mechanical Ventilator 100 01/29/18 03:30 60 28 87/34 91 Mechanical Ventilator 100 01/29/18 03:29 60 29 100 01/29/18 03:23 60 76/40 01/29/18 03:15 60 29 76/40 90 Mechanical Ventilator 100 01/29/18 03:00 87/40 01/29/18 03:00 60 29 87/40 91 Mechanical Ventilator 100 01/29/18 02:45 60 28 94/49 91 Mechanical Ventilator 100 01/29/18 02:30 60 29 75/20 91 Mechanical Ventilator 100 01/29/18 02:15 60 28 96/47 90 Mechanical Ventilator 100 01/29/18 02:00 60 29 91/53 90 Mechanical Ventilator 100 01/29/18 02:00 91/53 01/29/18 01:45 60 27 85/44 91 Mechanical Ventilator 100 01/29/18 01:31 82/35 01/29/18 01:30 60 30 82/35 91 Mechanical Ventilator 100 01/29/18 01:15 60 30 81/40 88 Mechanical Ventilator 100 01/29/18 01:00 78/39 01/29/18 01:00 60 31 78/39 89 Mechanical Ventilator 100 01/29/18 00:49 60 30 100 01/29/18 00:45 60 31 80/45 92 Mechanical Ventilator 100 01/29/18 00:30 60 31 79/42 89 Mechanical Ventilator 100 01/29/18 00:15 60 31 84/39 89 Mechanical Ventilator 100 01/29/18 00:00 100 01/29/18 00:00 97.0 60 30 83/42 89 Mechanical Ventilator 100 97.0 01/29/18 00:00 60 01/29/18 00:00 83/42 01/28/18 23:45 60 31 81/44 87 Mechanical Ventilator 100 01/28/18 23:30 60 33 73/44 86 Mechanical Ventilator 100 01/28/18 23:15 60 32 80/48 85 Mechanical Ventilator 100 01/28/18 23:12 60 33 100 01/28/18 23:02 60 81/46 01/28/18 23:02 81/46 01/28/18 23:00 60 31 81/46 85 Mechanical Ventilator 100 01/28/18 22:45 60 30 70/36 74 Mechanical Ventilator 100 01/28/18 22:30 60 30 66/39 77 Mechanical Ventilator 100 01/28/18 22:15 60 32 76/44 52 Mechanical Ventilator 100 01/28/18 22:00 60 30 83/38 85 Mechanical Ventilator 100 01/28/18 22:00 83/38 01/28/18 21:45 60 29 70/38 87 Mechanical Ventilator 100 01/28/18 21:30 60 29 77/41 89 Mechanical Ventilator 100 01/28/18 21:20 60 30 100 01/28/18 21:15 60 31 90/37 90 Mechanical Ventilator 100 01/28/18 21:00 88/43 01/28/18 21:00 60 22 88/43 94 Mechanical Ventilator 100 01/28/18 20:58 70/41 01/28/18 20:45 60 31 70/41 93 Mechanical Ventilator 100 01/28/18 20:30 60 19 80/41 89 Mechanical Ventilator 100 01/28/18 20:15 60 30 84/43 90 Mechanical Ventilator 100 01/28/18 20:00 60 9 84/43 89 Mechanical Ventilator 100 01/28/18 20:00 74/59 01/28/18 20:00 100 01/28/18 20:00 60 01/28/18 19:45 60 32 82/42 89 Mechanical Ventilator 100 01/28/18 19:30 98.0 60 32 82/42 89 Mechanical Ventilator 100 98.0 01/28/18 19:15 60 32 81/48 91 01/28/18 19:15 60 32 81/48 91 Mechanical Ventilator 100 01/28/18 19:00 82/42 01/28/18 19:00 60 31 88/41 92 Mechanical Ventilator 100 01/28/18 18:53 60 31 100 01/28/18 18:30 60 27 75/42 87 Mechanical Ventilator 100 01/28/18 18:00 60 28 85/38 94 Mechanical Ventilator 100 01/28/18 18:00 85/38 01/28/18 17:45 60 10 91/54 85 01/28/18 17:30 60 26 97/52 92 Mechanical Ventilator 100 01/28/18 17:15 60 97/53 95 01/28/18 17:07 60 95/55 88 01/28/18 17:07 60 31 100 01/28/18 17:05 60 27 95/55 93 Mechanical Ventilator 100 01/28/18 17:00 60 93/50 88 01/28/18 17:00 93/50 01/28/18 16:51 60 87/53 01/28/18 16:07 83/50 01/28/18 16:00 60 01/28/18 16:00 95.5 60 25 83/50 85 Mechanical Ventilator 100 95.5 01/28/18 16:00 100 01/28/18 15:30 60 20 91/48 81 Mechanical Ventilator 100 01/28/18 15:25 91/48 01/28/18 15:02 60 27 100 01/28/18 15:00 60 22 82/45 87 Mechanical Ventilator 100 Height (Feet): 5 Height (Inches): 10.00 Weight (Pounds): 200 Objective General Appearance: cachetic Lines, tubes and drains: peripheral, central line - left femoral, trach, gtube Neck: non-tender Respiratory/Chest: rhonchi - left, rhonchi - right Cardiovascular/Chest: normal peripheral pulses, normal rate Abdomen: normal bowel sounds Genitourinary/Rectal: normal genital exam, normal rectal exam Extremities: no edema, no cyanosis Skin Exam: normal pigmentation Microbiology Date/Time Source Procedure Growth Status 01/28/18 01:45 Blood Blood Culture - Preliminary NO GROWTH AFTER 24 HOURS Resulted 01/28/18 01:30 Blood Blood Culture - Preliminary NO GROWTH AFTER 24 HOURS Resulted 01/28/18 12:53 Wound Gram Stain - Final Resulted 01/28/18 12:53 Wound Culture - Preliminary Gram Negative Bacillus 1 Resulted 01/29/18 06:30 Nasopharynx Influenza Types A,B Antigen (MOHIT) - Final Complete 01/28/18 12:53 Sputum Gram Stain - Final Resulted 01/28/18 12:53 Sputum Sputum Culture Pending Resulted 01/28/18 00:50 Nasal Nares MRSA Culture - Preliminary Resulted 01/28/18 00:50 Urine,Clean Catch Urine Culture - Preliminary Gram Negative Bacillus 1 Resulted Laboratory Tests Test 01/28/18 17:30 01/28/18 17:45 01/29/18 05:30 01/29/18 08:19 Lactic Acid Level 10.40 mmol/L (0.66-2.22) H 14.60 mmol/L (0.66-2.22) H White Blood Count 17.6 K/UL (4.8-10.8) #H 37.3 K/UL (4.8-10.8) #*H Red Blood Count 3.23 M/UL (4.70-6.10) L 2.98 M/UL (4.70-6.10) L Hemoglobin 10.1 G/DL (14.2-18.0) #L 9.1 G/DL (14.2-18.0) L Hematocrit 30.4 % (42.0-52.0) #L 28.9 % (42.0-52.0) L Mean Corpuscular Volume 94 FL (80-99) 97 FL (80-99) Mean Corpuscular Hemoglobin 31.2 PG (27.0-31.0) H 30.6 PG (27.0-31.0) Mean Corpuscular Hemoglobin Concent 33.0 G/DL (32.0-36.0) 31.4 G/DL (32.0-36.0) L Red Cell Distribution Width 15.6 % (11.6-14.8) H 16.3 % (11.6-14.8) H Platelet Count 69 K/UL (150-450) L 48 K/UL (150-450) L Mean Platelet Volume 9.3 FL (6.5-10.1) 12.9 FL (6.5-10.1) H Neutrophils (%) (Auto) % (45.0-75.0) % (45.0-75.0) Lymphocytes (%) (Auto) % (20.0-45.0) % (20.0-45.0) Monocytes (%) (Auto) % (1.0-10.0) % (1.0-10.0) Eosinophils (%) (Auto) % (0.0-3.0) % (0.0-3.0) Basophils (%) (Auto) % (0.0-2.0) % (0.0-2.0) Differential Total Cells Counted 100 100 Neutrophils % (Manual) 27 % (45-75) L 27 % (45-75) L Lymphocytes % (Manual) 12 % (20-45) L 7 % (20-45) L Monocytes % (Manual) 15 % (1-10) H 12 % (1-10) H Eosinophils % (Manual) 0 % (0-3) 0 % (0-3) Basophils % (Manual) 0 % (0-2) 0 % (0-2) Metamyelocytes % 12 % (0-0) H 15 % (0-0) H Band Neutrophils 34 % (0-8) H 36 % (0-8) H Nucleated Red Blood Cells 12 /100 WBC 9 /100 WBC Toxic Granulation 1+ Platelet Estimate Adequate Decreased L Platelet Morphology Giant Platelets 1+ 1+ Polychromasia 1+ Sodium Level 123 MMOL/L (136-145) L 122 MMOL/L (136-145) L Potassium Level 5.9 MMOL/L (3.5-5.1) H 6.0 MMOL/L (3.5-5.1) *H Chloride Level 89 MMOL/L (98-107) L 88 MMOL/L (98-107) L Carbon Dioxide Level 19 MMOL/L (21-32) L 11 MMOL/L (21-32) L Anion Gap 15 mmol/L (5-15) 23 mmol/L (5-15) H Blood Urea Nitrogen 53 mg/dL (7-18) H 53 mg/dL (7-18) H Creatinine 1.8 MG/DL (0.55-1.30) H 2.0 MG/DL (0.55-1.30) H Estimat Glomerular Filtration Rate mL/min (>60) mL/min (>60) Glucose Level 118 MG/DL (74-106) H 86 MG/DL (74-106) Calcium Level 8.2 MG/DL (8.5-10.1) L 7.8 MG/DL (8.5-10.1) L C-Reactive Protein, Quantitative > 70.0 mg/dL (0.00-0.90) H Myelocytes % 3 % (0-0) H Other Cell Type Pathologist comment Hypochromasia 1+ Anisocytosis 1+ Macrocytosis 1+ Erythrocyte Sedimentation Rate 90 MM/HR (0-20) H Reticulocyte Count 1.7 % (0.0-2.0) Prothrombin Time 12.7 SEC (9.30-11.50) H Prothromb Time International Ratio 1.3 (0.9-1.1) H Activated Partial Thromboplast Time 62 SEC (23-33) H Hemoglobin A1c 5.3 % (4.3-6.0) Osmolality 281 mOsm/kg (297-317) L Uric Acid 6.6 MG/DL (2.6-7.2) Phosphorus Level 7.6 MG/DL (2.5-4.9) H Magnesium Level 2.2 MG/DL (1.8-2.4) Iron Level 93 ug/dL (50-175) Total Iron Binding Capacity 154 ug/dL (250-450) L Percent Iron Saturation 60 % (15-50) H Unsaturated Iron Binding 61 ug/dL (112-346) L Total Bilirubin 1.0 MG/DL (0.2-1.0) Direct Bilirubin 0.7 MG/DL (0.0-0.3) H Gamma Glutamyl Transpeptidase 20 U/L (5-85) Aspartate Amino Transf (AST/SGOT) 122 U/L (15-37) H Alanine Aminotransferase (ALT/SGPT) 46 U/L (12-78) Alkaline Phosphatase 154 U/L (46-116) H Lactate Dehydrogenase 316 U/L (81-234) H Total Creatine Kinase 107 U/L (26-308) Troponin I 0.010 ng/mL (0.000-0.056) Pro-B-Type Natriuretic Peptide > 38710 pg/mL (0-125) H Total Protein 5.5 G/DL (6.4-8.2) L Albumin 1.4 G/DL (3.4-5.0) L Globulin 4.1 g/dL Albumin/Globulin Ratio 0.3 (1.0-2.7) L Triglycerides Level 18 MG/DL (30-150) L Cholesterol Level < 50 MG/DL (< 200) LDL Cholesterol 21 mg/dL (<100) HDL Cholesterol 30 MG/DL (40-60) L Cholesterol/HDL Ratio 1.7 (3.3-4.4) L Carcinoembryonic Antigen Pending Vitamin B12 Level > 2000 PG/ML (193-986) H Folate 17.4 NG/ML (8.6-58.9) Thyroid Stimulating Hormone (TSH) 6.790 uiU/mL (0.358-3.740) Random Amikacin Level Pending Coccidioides Antibody (Comp Fix) Pending Arterial Blood pH 6.973 (7.350-7.450) Arterial Blood Partial Pressure CO2 34.6 mmHg (35.0-45.0) L Arterial Blood Partial Pressure O2 71.2 mmHg (75.0-100.0) L Arterial Blood HCO3 7.8 mmol/L (22.0-26.0) L Arterial Blood Oxygen Saturation 87.6 % (92.0-98.0) L Arterial Blood Base Excess -22.7 Luis Test Positive Test 01/29/18 10:00 Lactic Acid Level 14.80 mmol/L (0.66-2.22) H Current Medications Medications (Trade) Dose Ordered Sig/Jojo Route PRN Reason Start Time Stop Time Status Last Admin Dose Admin Acetaminophen (Tylenol) 650 mg Q4H PRN ORAL fever 01/28/18 10:00 02/27/18 09:59 Albumin Human 50 ml @ 50 mls/hr Q8H IV 01/29/18 06:00 01/29/18 14:59 01/29/18 14:17 Albuterol/ Ipratropium (Albuterol/ Ipratropium) 3 ml Q4H PRN HHN Shortness of Breath 01/28/18 10:00 02/02/18 09:59 Amikacin Sulfate 750 mg/Sodium Chloride 113 ml @ 113 mls/hr Q36H IV 01/28/18 17:00 02/04/18 16:59 01/28/18 16:58 Chlorhexidine Gluconate (Diane-Hex 2%) 1 applic DAILY@2000 TOPIC 01/29/18 20:45 02/28/18 20:44 Hydrocortisone (Solu-CORTEF) 100 mg EVERY 8 HOURS IV 01/28/18 22:00 02/27/18 21:59 01/29/18 14:17 Levetiracetam (Keppra) 500 mg Q12HR GT 01/28/18 21:00 02/27/18 20:59 01/29/18 09:12 Levothyroxine Sodium (Synthroid) 100 mcg DAILY GT 01/29/18 09:00 02/28/18 08:59 01/29/18 09:12 Lorazepam (Ativan 2mg/ml 1ml) 2 mg Q2H PRN IV For Anxiety 01/28/18 10:00 02/04/18 09:59 Meropenem 1 gm/ Sodium Chloride 55 ml @ 110 mls/hr Q12H IVPB 01/28/18 16:00 02/02/18 15:59 01/29/18 04:31 Midodrine (Pro-Amatine) 10 mg THREE TIMES A DAY GT 01/28/18 18:00 02/27/18 17:59 01/29/18 14:17 Norepinephrine Bitartrate 8 mg/ Dextrose 250 ml @ 0 mls/hr Q24H IV 01/28/18 16:00 02/27/18 15:59 01/29/18 11:06 Ondansetron HCl (Zofran) 4 mg Q6H PRN IVP Nausea & Vomiting 01/28/18 10:00 02/27/18 09:59 Oseltamivir Phosphate (Tamiflu) 30 mg DAILY ORAL 01/30/18 09:00 02/04/18 08:59 Pantoprazole (Protonix) 40 mg DAILY IVP 01/29/18 09:00 02/28/18 08:59 01/29/18 09:13 Phenylephrine HCl 50 mg/Dextrose 250 ml @ 0 mls/hr Q24H IV 01/28/18 16:00 02/27/18 15:59 01/29/18 11:42 Polyethylene Glycol (Miralax) 17 gm DAILYPRN PRN ORAL Constipation 01/28/18 10:00 02/27/18 09:59 Sodium Bicarbonate 100 ml/Dextrose 1,100 ml @ 100 mls/hr Q11H IV 01/29/18 10:00 02/28/18 09:59 01/29/18 10:18 Vancomycin HCl 1 gm/Dextrose 275 ml @ 183.3 mls/ hr Q24H IVPB 01/29/18 11:00 02/03/18 10:59 01/29/18 11:05 Marilia Beckett M.D. January 29, 2018 15:07
[2018-01-29] MEDS ORDERED: Dyna-Hex 2% Top Sol 2oz TOPIC SCH (20:45)
[2018-01-30] VITALS (10 sets, daily range): BP systolic 0–78; BP diastolic 0–47
--- NOTE | 2018-01-30 | Consultation ---
DATE OF CONSULTATION: 01/28/2018 CARDIOLOGY CONSULTATION CONSULTING PHYSICIAN: Rober Galdamez M.D. REQUESTING PHYSICIAN: Mónica Coleman M.D. REASON FOR CONSULTATION: Shock. HISTORY OF PRESENT ILLNESS: This is an 87-year-old male, who resides at a subacute facility, who was transferred to the emergency room because of lethargy, hypotension, tachycardia, and fever. He was brought into the emergency room by paramedics where he was resuscitated with 4 liters of saline and then started on pressor support. Central IV access was obtained and he was transfused 2 units of packed red blood cells for a low blood count. The patient has a prior history of tracheostomy and is on mechanical ventilation. PAST MEDICAL HISTORY: Status post cerebral hemorrhage in 2017, tracheostomy, gastrostomy, history of congestive heart failure, paroxysmal atrial fibrillation, and permanent pacemaker. MEDICATIONS: Prior to admission, reviewed and reconciled. FAMILY HISTORY: Not known. SOCIAL HISTORY: No record of prior smoking, alcohol, or substance abuse. REVIEW OF SYSTEMS: Not obtainable. PHYSICAL EXAMINATION: VITAL SIGNS: Temperature 95.5, blood pressure 87/53, heart rate 60, and respiratory rate 21. HEENT: Pupils are reactive. Conjunctiva pallor. Oropharynx clear. NECK: Supple. Tongue is dry. Trach site with no drainage or bleeding. LUNGS: With bilateral rhonchi. CARDIAC: Regular rhythm and rate. Normal S1. Paradoxically split S2. A 1/6 systolic murmur at the base. ABDOMEN: Soft. G-tube intact. No leakage noted. EXTREMITIES: With poor capillary refill, but no edema. NEUROLOGIC: He withdraws to pain. LABORATORY DATA: Hemoglobin 7.9, white count 3.1, and platelet count 65,000. BUN 53 and creatinine 1.6. Sodium 130, potassium 5.3, chloride 84, bicarb 20, lactic acid 4.4, and pro-natriuretic peptide 7000. Albumin 1.3. Troponin negative. EKG, atrial fibrillation, ventricular pacing. Chest x-ray with bilateral infiltrates, right greater than left. IMPRESSION: 1. Shock. 2. Sepsis. 3. Hypothermia. 4. Hypovolemia. 5. Severe anemia. 6. Lactic acidosis. 7. Hyponatremia. 8. Hyperkalemia. 9. 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 10. Tracheostomy. 11. Respiratory failure. 12. Permanent pacemaker. 13. Condition critical. Prognosis guarded. PLAN: 1. Henry culture. 2. Broad-spectrum antibiotics. 3. Ventilator support. 4. Pressor support. 5. Volume resuscitation. 6. Transfusion to hemoglobin above 8 grams. 7. Further consideration for stress dose steroids. 8. Cortisol level should be checked as well as thyroid function and serial lactic acid levels as well as close monitoring of renal parameters and electrolytes. Rober Galdamez M.D. DR: AGGIE JOB#: [id number] CC:
[2018-01-30] MEDS ORDERED: Norepinephrine Bitartrate 16 MG in D5W 500ml 484 ML IV SCH (01:00)
--- NOTE | 2018-01-30 01:00 | Progress Note ---
DATE: 01/29/2018 CARDIOLOGY PROGRESS NOTE SUBJECTIVE: Case discussed last night with Dr. Coleman. The patient remains in the intensive care unit. Condition remains critical. Prognosis guarded. The patient remains in with hypotension and is on pressors as well as mechanical ventilation. Monitored rhythm, sinus. OBJECTIVE: VITAL SIGNS: Blood pressure 85/48, pulse 60, respiratory rate 26, no fever spikes. HEENT: He is ventilated via tracheostomy. Thick trach secretions. LUNGS: Bilateral rhonchi. HEART: Regular rhythm and rate. Normal S1 and S2. ABDOMEN: Soft. G-tube intact. EXTREMITIES: Trace edema. LABORATORY AND DIAGNOSTIC DATA: White count and hemoglobin 9. ABG, 6.97, 35, and 71. Lactic acid up to 15. Echocardiogram revealed normal ejection fraction. EKG reveals a paced rhythm. IMPRESSION: 1. Sepsis with shock. 2. Hypothermia. 3. Ventilator-dependent respiratory failure. 4. Permanent pacemaker. 5. Chronic atrial fibrillation. 6. Severe respiratory acidosis, lactic acidosis. 7. Critical and guarded. PLAN: 1. Ventilator support. 2. Broad-spectrum antibiotics. 3. Bicarbonate drip. 4. Pressors. 5. DVT and stress ulcer prophylaxis. 6. Okay to hold amiodarone at this time. 7. Follow up cortisol level and thyroid function. 8. Warming measures with Radha Segovia. Rober Galdamez M.D. DR: JUAN RAMON JOB#: [id number] CC:
[2018-01-30] MEDS: Phenylephrine 50 MG in D5W 245 ML IV SCH (02:42)
[2018-01-30] MEDS ORDERED: Tubing IV Secondary IV ONE (04:15)
--- NOTE | 2018-01-30 04:29 | Emergency Room Report ---
History of Present Illness General Chief Complaint: Altered Level of Consciousness Source: Medical Record Present Illness Allergies: Coded Allergies: CYANOCOBALAMIN (Verified Allergy, Unknown, 01/28/18) Nursing Documentation-[facility] Past Medical History Deferred: Patient Unconscious Hx Cardiac Problems: Yes Hx Hypertension: Yes - ANEMIA,HYPOTHYROIDISM Hx Pacemaker: Yes Hx Diabetes: Yes Hx Gastrointestinal Problems: Yes - g-tube History Of Psychiatric Problem: Yes - ANXIETY,SCHIZO Hx Cerebrovascular Accident: Yes Hx Seizures: Yes Hx Epilepsy: Yes Physical Exam Vital Signs Date Time Temp Pulse Resp B/P (MAP) Pulse Ox O2 Delivery O2 Flow Rate FiO2 01/28/18 00:41 60 17 77/45 100 Mechanical Ventilator 100 01/28/18 01:00 90.0 90.0 Procedures CPR/Code Blue CPR/Code Blue Narrative Arrival the patient is in asystole CPR in progress On a rapid secondary evaluation patient's pupils are fixed and dilated at 4 mm there are no spontaneous respirations patient has significant crackles and there also appears to be fluid in the oral airway and mucosa Patient has significant edema in the lower abdomen and genital area as well CPR ongoing Patient's Accu-Chek is critical low Patient was given 2 rounds of dextrose Epinephrine Patient shows no signs of any response to intervention At this time all attempts appearing futile Patient pronounced at 04:16 Medical Decision Making Diagnostic Impression: Primary Impression: Altered level of consciousness Additional Impressions: Anemia Qualified Codes: D64.9 - Anemia, unspecified Septic shock Hyponatremia Renal insufficiency UTI (urinary tract infection) Qualified Codes: N39.0 - Urinary tract infection, site not specified Pneumonia Qualified Codes: J18.9 - Pneumonia, unspecified organism Last Vital Signs Date Time Temp Pulse Resp B/P (MAP) Pulse Ox O2 Delivery O2 Flow Rate FiO2 01/30/18 02:50 60 24 100 01/30/18 02:42 71/40 01/30/18 00:30 97.4 97 Mechanical Ventilator 97.4 Disposition: ADMITTED INPATIENT Condition: Critical Referrals: Mónica Coleman MD (PCP) Shelbi Law DO January 30, 2018 04:29
[2018-01-30] MEDS: Meropenem 1 GM in NS 55 ML IVPB SCH (04:51)
--- NOTE | 2018-01-30 06:15 | Progress Note ---
DATE: 01/29/2018 NOTE: POOR AUDIO SUBJECTIVE: The patient's condition remained critical, continued to deteriorate and done to maintain patient alive after communicating with the patient's son all methods will be used to keep his father alive. PHYSICAL EXAMINATION: VITAL SIGNS: Blood pressure is 83/43, pulse 86, respirations 26, and temperature is 97.6 degrees. HEENT: Eyes were normal. Pupils were round, but not reacting to light. ENT, mucous membranes were moist. NECK: Supple with no JVD without lymph nodes. Tracheostomy site is clean. LUNGS: Clear without rhonchi, rales, or wheezing. Secretions are small, thin, and dhaliwal. HEART: Normal sounds with beats. There is only paced rhythm on monitor . EXTREMITIES: Warm without cyanosis, clubbing, or edema. LABORATORY AND DIAGNOSTIC DATA: His hemoglobin is 9.1, hematocrit 28.9 with MCV of 97, WBC of 37.3, and platelets of 48. His WBC yesterday was 17.6 and platelets were 69. His BUN and creatinine are 53 and 2.0, respectively. Sodium is 122, potassium 6.0, chloride 98, CO2 is 11, and calcium is 7.8. His iron is 93, iron saturation is 60. LDL is 316. Albumin is 1.4 and total protein is 5.5. His CRP is more than 70. His LDL is 21. His TSH is 6.7. Folate was 17.4. His INR is 1.3 and his PTT is 62. antibody is pending. His stool for occult blood is pending. His urine shows 40-60 rbc per high-power field and his wbc of 60-80 per high-power field, both of them are 30 minutes yesterday. His random sodium in the urine was 35 and potassium 39. His lactic acid in the room is now 14.6 and was 7.8 this morning. Repeat 4.4 to 10.4 yesterday. without changes yesterday. ASSESSMENT AND PLAN: The patient is now on maximum support with Levophed and . He is currently on vancomycin 1 g IV piggyback , meropenem 500 mg IV piggyback q.12, amikacin mg q.36 hours. Repeat laboratory tests will be done in the morning. The patient is now being followed by fall intern, engineering clerk, newspaper writer, and infectious disease specialists. Mónica Coleman M.D. DR: TIMOTHY JOB#: [id number] CC:
--- NOTE | 2018-02-02 10:03 | Discharge Summary ---
Discharge Summary Hospital Course Date of Admission January 28, 2018 at 01:08 Date of Discharge January 30, 2018 at 04:16 Admitting Diagnosis AMS HPI Larry Momin is a 87 year old male who was admitted on January 28, 2018 at 01:08 for Altered Mental Status Hospital Course summary #[id number] Discharge Discharge Disposition patient Discharge Instructions Discharge Instructions Special Instructions I have been assigned to complete a D/C Summary on this account. I was not involved in the patient management Oksana Smith NP February 02, 2018 10:03
--- NOTE | 2018-02-03 01:00 | Discharge Summary 2 SIG ---
ela followed. MTDD
--- NOTE | 2018-02-05 12:45 | Diagnostic Imaging Report ---
APPROVED REPORT CPT Code: 28746 Present Symptoms Comments: SOB BILATERAL: Imaging reveals a patent deep venous system bilaterally. There is no evidence of thrombus within the femoral, popliteal or tibial segments. The greater saphenous veins are also within normal limits. Doppler indicates normal spontaneous flow within these segments.
--- NOTE | 2018-02-05 15:00 | Discharge Summary 2 SIG ---
SUMMARY DATE OF ADMISSION: 01/28/2018 DATE OF DISCHARGE: 01/30/2018 REASON FOR ADMISSION: 87-year-old male with extensive past medical history significant for chronic respiratory failure, tracheostomy status, status post cerebral hemorrhage, seizure disorder, permanent pacemaker, dysphagia, G-tube, anemia, dementia, schizophrenia, and hypothyroidism presented to emergency department for evaluation for altered mental status for 1 day. The patient had baseline dementia, however, nursing staff noted that the patient appeared to be more altered than usual. In triage, he was hypotensive. Blood pressure was 77/45. The patient was hypothermic with temperature of 90. Initial ABG on 100% O2 revealed severe hypercapnia. The patient subsequently was placed on ventilator Laboratory workup revealed sodium 123, potassium 5.9, BUN 53, creatinine 1.8, hemoglobin 7.1, and hematocrit 19.4. Initial WBC 3.1. Repeated CBC showed leukocytosis with WBC 17.6. Urinalysis was consistent with evidence of urinary tract infection. Chest x-ray showed bilateral infiltrates. The patient had a left femoral central line placement in the emergency department in anticipation for possible pressors. Septic workup initiated. The patient started on aggressive fluid resuscitation and empiric antibiotics. The patient was admitted to intensive care unit in critical condition with diagnoses of altered level of consciousness, septic shock, sepsis, renal insufficiency, urinary tract infection, acute on chronic respiratory failure, pneumonia, anemia, hyponatremia, and hyperkalemia. CONSULTANTS: 1. Client Delivery Specialist, Dr. Galdamez. 2. Continuous Process Machine Operator/critical care, Dr. Marlow. 3. Infectious disease specialist, Dr. Martinez. 4. Animal Nurse, Dr. Tyson. HOSPITAL COURSE: The patient admitted to intensive care unit. The patient was placed on mechanical ventilator. Ventilator support and tracheostomy care provided. Pulmonary toilet provided. ABG on January 29 revealed acidosis and hypoxemia with FiO2 of 100% and AC of 16. Subsequently AC rate was increased. Aggressive volume resuscitation provided with IV fluids. The patient was started on pressor for hemodynamic support. Echocardiogram revealed preserved ejection fraction of 60% to 65% with no evidence of left ventricular hypertrophy. No evidence of pericardial or pleural effusion. Evidence of pacemaker in right-sided chambers noted. Right ventricular systolic pressure of 25. The patient was on empiric antibiotic as per ID specialist recommendations. Urine culture grew later Pseudomonas aeruginosa multidrug resistant. Blood cultures were negative. Influenza screen test was negative. Sputum culture revealed Klebsiella pneumoniae, Pseudomonas aeruginosa, Streptococcus group C. Warming measure provided with the Radha Hugger. Venous duplex bilateral lower extremity revealed no evidence of acute DVT. Abdominal ultrasound showed a 5 x 7 cm filling defect within the urinary bladder , representing a hematoma or mass. Evaluation cystoscopy was recommended. No hydronephrosis was noted. Normal bilateral kidney echogenicity demonstrated. Animal Nurse closely followed. Renal parameters and electrolytes were closely monitored. Electrolytes were corrected as needed. Nephrotoxics were avoided. The patient had evidence of hypoalbuminemia. Albumin was provided. Next day, renal parameters worsened with a creatinine up to 2.0. Due to low sodium and high potassium, for possible adrenal insufficiency, the patient was started on hydrocortisone. Cortisol level was ordered. The patient undergone transfusion of one unit of packed red blood cells. Hemoglobin and hematocrit trended up. After transfusions, hemoglobin 10.1, hematocrit 30.4. However, next day,hemoglobin down to 9.1 and hematocrit 28.9. Stool for occult blood was negative.Elevated CEA noted 42.1. That day laboratory values revealed worsening leukocytosis 37.3, platelet count down to 48, ESR 19. Sodium continued to be low 122, potassium 6.0, and lactic acid 14.6. The patient was on bicarbonate drip. Troponin was negative. The patient was continued on pressors. Client Delivery Specialist agreed to hold amiodarone at this time. All consultants agree that the patient's condition was guarded and critical. The patient was on two pressors with maximum dose : phenylephrine and norepinephrine. Albumin was given x1. Seizure precautions were maintained. Keppra was continued. No evidence of seizure activity while in the hospital. Code Blue was called on January 30, 2018 at 04:04. The patient was in asystole. Code Blue was performed as per ACLS protocol. Accu-Chek was critically low. Two rounds of dextrose given along with epinephrine and ongoing CPR . However, the patient showed no signs of any response to interventions. At that time, all attempts appeared to be futile. The patient subsequently was pronounced at 04:16, on January 30, 2018. Cause of : cardiopulmonary arrest. FINAL DIAGNOSES: 1. Acute on chronic respiratory failure with ventilator dependent respiratory failure 2. Septic shock 3. Sepsis (due to UTI and PNA) 4. Hypothermia 5. Pneumonia with multiple organisms including Klebsiella pneumoniae, Pseudomonas aeruginosa and Streptococcus group C. 6. Urinary tract infection with multidrug resistant Pseudomonas aeruginosa. 7. Severe respiratory acidosis/lactic acidosis. 8. Encephalopathy. 9. Acute renal failure. 10. Chronic atrial fibrillation. 11. Permanent pacemaker. 12. Severe anemia, status post blood transfusion. 13. Hyponatremia. 14. Hyperkalemia. 14. 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 15. Hypoalbuminemia. 16. Seizure disorder. 17. Dementia Mónica Coleman M.D. I have been assigned to dictate discharge summary on this account and I was not involved in the patient's management. Oksana Santamariajag N.POmega DR: KULDIP JOB#: [id number] CC: JEB
== END 2018-01-30 04:16 | disposition expired | DRG 871 ==
LOC: EDBD 00:39 → EMR 00:59 → ICU 01:08 → EDBEDREQ 01:39 → EDBEDREQSVC 03:05 → EDBEDREQ 03:05
PROC: 30233N1 Transfusion of Nonautologous Red Blood Cells into Peripheral Vein, Percutaneous Approach (ICD-10-PCS; principal; 2018-01-28)
PROC: 5A1945Z Respiratory Ventilation, 24-96 Consecutive Hours (ICD-10-PCS; 2018-01-28)
PROC: 5A12012 Performance of Cardiac Output, Single, Manual (ICD-10-PCS; 2018-01-30)
DX: A41.9 Sepsis, unspecified organism (principal); R65.21 Severe sepsis with septic shock; J96.20 Acute and chronic respiratory failure, unspecified whether with hypoxia or hypercapnia; J15.0 Pneumonia due to Klebsiella pneumoniae; J15.4 Pneumonia due to other streptococci; G93.40 Encephalopathy, unspecified; N17.9 Acute kidney failure, unspecified; E87.1 Hypo-osmolality and hyponatremia; Z43.1 Encounter for attention to gastrostomy; Z99.11 Dependence on respirator [ventilator] status; N39.0 Urinary tract infection, site not specified; E27.40 Unspecified adrenocortical insufficiency; R68.0 Hypothermia, not associated with low environmental temperature; Z43.0 Encounter for attention to tracheostomy; E03.9 Hypothyroidism, unspecified; F03.90 Unspecified dementia, unspecified severity, without behavioral disturbance, psychotic disturbance, mood disturbance, and anxiety; D64.9 Anemia, unspecified; F41.9 Anxiety disorder, unspecified; F20.9 Schizophrenia, unspecified; E88.09 Other disorders of plasma-protein metabolism, not elsewhere classified; G40.909 Epilepsy, unspecified, not intractable, without status epilepticus; Z88.8 Allergy status to other drugs, medicaments and biological substances; Z95.0 Presence of cardiac pacemaker; I69.10 Unspecified sequelae of nontraumatic intracerebral hemorrhage; L89.159 Pressure ulcer of sacral region, unspecified stage; B96.5 Pseudomonas (aeruginosa) (mallei) (pseudomallei) as the cause of diseases classified elsewhere; Z16.24 Resistance to multiple antibiotics; I48.2 Chronic atrial fibrillation; E87.5 Hyperkalemia
CPT/HCPCS: 36415; 36600; 71045; 76700; 76856; 80048; 80053; 80061; 80150; 81001; 81003; 82248; 82270; 82378; 82550; 82553; 82607; 82746; 82803; 82962; 82977; 83036; 83540; 83550; 83605; 83615; 83735; 83880; 83930; 84100; 84133; 84300; 84443; 84484; 84550; 85007; 85025; 85044; 85060; 85610; 85651; 85730; 86140; 86635; 86710; 86850; 86900; 86901; 86920; 87040; 87070; 87081; 87086; 87181; 87205; 89050; 92950; 93005; 93306; 93970; 94002; 94003; 94664; 99291; J2370; J7620